=== PATIENT | male | born 1960 | race Caucasian/White ===

== ENCOUNTER 2017-08-23 12:01 | Inpatient (IN) ==
[2017-08-23 13:03] LABS: Hematocrit 22.1 % (37.5-50.1); Red Cell Distribution Width 20.8 % (11.5-14.5)
[2017-08-23 13:04] LABS: Basophils % 0.8 %
[2017-08-23 13:05] LABS: Eosinophils # 0.1 K/mcL (0.0-0.6); Hemoglobin 6.9 g/dL (12.9-16.9); Immature Granulocytes % 0.5 % (0-4); Immature Platelets 9.3 % (1.1-6.1); Lymphocytes % 27.9 %; Mean Corpuscular HGB Conc 31.2 g/dL (31.6-35.5); Mean Corpuscular Hemoglobin 26.2 pg (28.0-33.3); Mean Platelet Volume 11.9 fL (9.4-12.4); Monocytes # 0.6 K/mcL (0.0-1.3); Monocytes % 14.8 %; Platelet Count 95 K/mcL (140-400); Red Blood Count 2.63 M/mcL (4.19-5.50)
[2017-08-23 13:50] LABS: BUN/Creatinine Ratio 36 (6-26); Blood Urea Nitrogen 24 mg/dL (6-20); Carbon Dioxide 22 mEq/L (23-29); Chloride 105 mEq/L (98-107); Glucose 103 mg/dL (70-105); Osmolality,Calculated 278 (280-300); Potassium 3.5 mEq/L (3.5-5.1); Sodium 132 mEq/L (136-145); eGFR For African Americans > 60 (> 60); eGFR For Non-African Americans > 60 (> 60)
[2017-08-23] MEDS ORDERED: 0.9 % Sodium Chloride 1,000 ML IVC ONE (14:19)
--- NOTE | 2017-08-23 14:19 | Emergency Department Note ---
Disposition Clinical Impression: GI bleed, History of esophageal varices Disposition: Admitted As Inpatient Condition: Fair Referrals: NONE,PCP [Primary Care Provider] - Forms: ED Satisfaction Letter General Adult HPI - General Chief complaint: ED GI Bleed Stated complaint: GI Bleed Time Seen by Provider: 08/23/17 13:56 Source: patient Limitations: no limitations - History of Present Illness Pain Scale: 8 - Related Data Home Medications Medication Instructions Recorded Confirmed ALPRAZolam [Xanax 1 MG Tablet] 1 mg PO TID 08/23/17 08/23/17 Dronabinol [Marinol] 5 mg PO BID 08/23/17 08/23/17 Furosemide [Lasix] 40 mg PO DAILY 08/23/17 08/23/17 OxyCODONE Immed Rel [Roxicodone 15 15 mg PO Q6HR PRN 08/23/17 08/23/17 MG] Propranolol [Inderal] 20 mg PO BID 08/23/17 08/23/17 Spironolactone [Aldactone] 25 mg PO DAILY 08/23/17 08/23/17 Allergies Allergy/AdvReac Type Severity Reaction Status Date / Time No Known Allergies Allergy Verified 08/23/17 14:10 Past Medical History - Past Medical History Medical history: Reports: GI bleed, hypertension, liver disease Psychiatric history: Reports: anxiety - Social History Smoking Status: Current every day smoker Smokeless Tobacco Status: No Alcohol use: Reports: none Drug use: Reports: none Physical Exam - General Limitations: no limitations General appearance: alert, in no apparent distress Course Vital Signs Temperature 97.8 F 08/23/17 12:02 Pulse Rate 71 08/23/17 12:02 Respiratory Rate 16 08/23/17 12:02 Blood Pressure 99/63 08/23/17 12:02 O2 Sat by Pulse Oximetry 100 08/23/17 12:02 Temperature 97.8 F 08/23/17 12:02 Pulse Rate 71 08/23/17 12:02 Respiratory Rate 16 08/23/17 12:02 Blood Pressure 99/63 08/23/17 12:02 O2 Sat by Pulse Oximetry 100 08/23/17 12:02 Oxygen Delivery Oxygen Delivery Room Air Medical Decision Making - Lab Data Result diagrams: 08/23/17 12:44 08/23/17 12:44 Lab Results 08/23/17 08/23/1718 Range/Units 12:44 12:44 12:44 WBC 3.7 L (4.3-11.1) K/mcL RBC 2.63 L (4.19-5.50) M/mcL Hgb 6.9 L (12.9-16.9) g/dL Hct 22.1 L (37.5-50.1) % MCV 84.0 (83.0-100.0) fL MCH 26.2 L (28.0-33.3) pg MCHC 31.2 L (31.6-35.5) g/dL RDW 20.8 H (11.5-14.5) % Plt Count 95 L (140-400) K/mcL MPV 11.9 (9.4-12.4) fL Immature Gran % 0.5 (0-4) % Seg Neutrophils % 53.0 % Lymphocytes % 27.9 % Monocytes % 14.8 % Eosinophils % 3.0 % Basophils % 0.8 % Neutrophils # 2.0 (1.6-8.9) K/mcL Lymphocytes # 1.0 (0.6-4.6) K/mcL Monocytes # 0.6 (0.0-1.3) K/mcL Eosinophils # 0.1 (0.0-0.6) K/mcL Basophils # 0.0 (0.0-0.2) K/mcL Immature Plt Fraction 9.3 H (1.1-6.1) % PT (9.4-12.1) Seconds INR APTT (26.0-36.0) Seconds Sodium 132 L (136-145) mEq/L Potassium 3.5 (3.5-5.1) mEq/L Chloride 105 (98-107) mEq/L Carbon Dioxide 22 L (23-29) mEq/L BUN 24 H (6-20) mg/dL Creatinine 0.67 L (0.70-1.30) mg/dL Est GFR ( Amer) > 60 (> 60) Est GFR (Non-Af Amer) > 60 (> 60) BUN/Creatinine Ratio 36 H (6-26) Glucose 103 (70-105) mg/dL Calculated Osmolality 278 L (280-300) Calcium 8.0 L (8.6-10.3) mg/dL Stool Occult Blood (Negative) Blood Type O POSITIVE Antibody Screen NEGATIVE Crossmatch See Detail 08/23/17 08/23/17 Range/Units 12:44 14:19 WBC (4.3-11.1) K/mcL RBC (4.19-5.50) M/mcL Hgb (12.9-16.9) g/dL Hct (37.5-50.1) % MCV (83.0-100.0) fL MCH (28.0-33.3) pg MCHC (31.6-35.5) g/dL RDW (11.5-14.5) % Plt Count (140-400) K/mcL MPV (9.4-12.4) fL Immature Gran % (0-4) % Seg Neutrophils % % Lymphocytes % % Monocytes % % Eosinophils % % Basophils % % Neutrophils # (1.6-8.9) K/mcL Lymphocytes # (0.6-4.6) K/mcL Monocytes # (0.0-1.3) K/mcL Eosinophils # (0.0-0.6) K/mcL Basophils # (0.0-0.2) K/mcL Immature Plt Fraction (1.1-6.1) % PT 12.8 H (9.4-12.1) Seconds INR 1.2 APTT 31.0 (26.0-36.0) Seconds Sodium (136-145) mEq/L Potassium (3.5-5.1) mEq/L Chloride (98-107) mEq/L Carbon Dioxide (23-29) mEq/L BUN (6-20) mg/dL Creatinine (0.70-1.30) mg/dL Est GFR ( Amer) (> 60) Est GFR (Non-Af Amer) (> 60) BUN/Creatinine Ratio (6-26) Glucose (70-105) mg/dL Calculated Osmolality (280-300) Calcium (8.6-10.3) mg/dL Stool Occult Blood Positive A (Negative) Blood Type Antibody Screen Crossmatch Critical Care Time Critical Care Time: Yes Total Critical Care Time: 30 Attestation: The high probability of a clinically significant, sudden or life threatening deterioration of the [] system(s) required my full and direct attention, intervention and personal management. The aggregate critical care time was [] minutes. This time is in addition to time spent performing reported procedures but includes the following: [] Data Review and interpretation [] Patient assessment and monitoring of vital signs [] Documentation [] Medication orders and management Attestation Statement - Attestation Attestation: I examined this patient and my medical decision-making was reviewed with the Resident Physician. I agree with the documented findings, disposition and treatment plan as described except to the extent set forth below. [id number] time provided. Patient seen in conjunction with the resident physician Dr. El. Patient presents with bleeding from his . He is anemic and hypotensive. He has a history of esophageal varices. He has remote history of alcohol cirrhosis. Appears pale on exa. triage note and vitals reviewed by me
[2017-08-23] MEDS ORDERED: Pantoprazole 80 MG in 0.9 % Sodium Chloride 50 ML IVPB ONE (14:25)
[2017-08-23 14:27] LABS: INR 1.2; Prothrombin Time 12.8 Seconds (9.4-12.1)
--- NOTE | 2017-08-23 14:28 | Emergency Department Note ---
Disposition Referrals: NONE,PCP [Primary Care Provider] - Forms: ED Satisfaction Letter Pediatric GI HPI - General Chief Complaint: ED GI Bleed Stated Complaint: GI Bleed Time Seen by Provider: 08/23/17 13:56 Source: patient Mode of arrival: ambulatory Limitations: no limitations Nursing Notes Reviewed: Yes Vital Signs Reviewed: Yes - History of Present Illness HPI narrative: 57-year-old male history of cirrhosis, remote alcoholic, hepatitis presents for evaluation of dark stools. Patient does have known varices that was banded in [place] of September of last year. Patient has also had a colonoscopy in the past 2 years and noted polyps. Patient had dark stools over the past 4 days. Patient notes some lightheadedness and generalized weakness. Notes intermittent chest pain and dyspnea as well. Denies any blood thinners or aspirin. Patient denies any abdominal pain. Patient denies any coffee-ground emesis or nausea or vomiting. - Related Data Home Medications Medication Instructions Recorded Confirmed ALPRAZolam [Xanax 1 MG Tablet] 1 mg PO TID 08/23/17 08/23/17 Dronabinol [Marinol] 5 mg PO BID 08/23/17 08/23/17 Furosemide [Lasix] 40 mg PO DAILY 08/23/17 08/23/17 OxyCODONE Immed Rel [Roxicodone 15 15 mg PO Q6HR PRN 08/23/17 08/23/17 MG] Propranolol [Inderal] 20 mg PO BID 08/23/17 08/23/17 Spironolactone [Aldactone] 25 mg PO DAILY 08/23/17 08/23/17 Allergies Allergy/AdvReac Type Severity Reaction Status Date / Time No Known Allergies Allergy Verified 08/23/17 14:10 Pediatric Exam - General Limitations: no limitations Course Vital Signs Temperature 97.8 F 08/23/17 12:02 Pulse Rate 71 08/23/17 12:02 Respiratory Rate 16 08/23/17 12:02 Blood Pressure 99/63 08/23/17 12:02 O2 Sat by Pulse Oximetry 100 08/23/17 12:02 Temperature 97.8 F 08/23/17 12:02 Pulse Rate 71 08/23/17 12:02 Respiratory Rate 16 08/23/17 12:02 Blood Pressure 99/63 08/23/17 12:02 O2 Sat by Pulse Oximetry 100 08/23/17 12:02 Oxygen Delivery Oxygen Delivery Room Air Medical Decision Making - Lab Data Result diagrams: 08/23/17 12:44 08/23/17 12:44 Lab Results 08/23/17 08/23/17 08/23/17 Range/Units 12:44 12:44 12:44 WBC 3.7 L (4.3-11.1) K/mcL RBC 2.63 L (4.19-5.50) M/mcL Hgb 6.9 L (12.9-16.9) g/dL Hct 22.1 L (37.5-50.1) % MCV 84.0 (83.0-100.0) fL MCH 26.2 L (28.0-33.3) pg MCHC 31.2 L (31.6-35.5) g/dL RDW 20.8 H (11.5-14.5) % Plt Count 95 L (140-400) K/mcL MPV 11.9 (9.4-12.4) fL Immature Gran % 0.5 (0-4) % Seg Neutrophils % 53.0 % Lymphocytes % 27.9 % Monocytes % 14.8 % Eosinophils % 3.0 % Basophils % 0.8 % Neutrophils # 2.0 (1.6-8.9) K/mcL Lymphocytes # 1.0 (0.6-4.6) K/mcL Monocytes # 0.6 (0.0-1.3) K/mcL Eosinophils # 0.1 (0.0-0.6) K/mcL Basophils # 0.0 (0.0-0.2) K/mcL Immature Plt Fraction 9.3 H (1.1-6.1) % Sodium 132 L (136-145) mEq/L Potassium 3.5 (3.5-5.1) mEq/L Chloride 105 (98-107) mEq/L Carbon Dioxide 22 L (23-29) mEq/L BUN 24 H (6-20) mg/dL Creatinine 0.67 L (0.70-1.30) mg/dL Est GFR ( Amer) > 60 (> 60) Est GFR (Non-Af Amer) > 60 (> 60) BUN/Creatinine Ratio 36 H (6-26) Glucose 103 (70-105) mg/dL Calculated Osmolality 278 L (280-300) Calcium 8.0 L (8.6-10.3) mg/dL Blood Type O POSITIVE Antibody Screen NEGATIVE
--- NOTE | 2017-08-23 14:32 | Emergency Department Note ---
Disposition Clinical Impression: History of esophageal varices, Transaminitis, Thrombocytopenia GI bleed Qualifiers: GI bleed type/associated pathology: melena Qualified Code(s): K92.1 - Melena Disposition: Admitted As Inpatient Condition: Fair Referrals: NONE,PCP [Primary Care Provider] - Forms: ED Satisfaction Letter Time of Disposition: 14:38 GI Bleed HPI - General Chief complaint: ED GI Bleed Stated complaint: GI Bleed Time Seen by Provider: 08/23/17 13:56 Source: patient Mode of arrival: ambulatory Limitations: no limitations Nursing Notes Reviewed: Yes Vital Signs Reviewed: Yes - History of Present Illness HPI Narrative: 57-year-old male with known esophageal varices former alcoholic with cirrhosis and hepatitis presents for evaluation of dark stools over the past 4 days. Patient notes an upper GI scope obtained on [place] last year. No recent interventions. Patient also had a colonoscopy within the past 2 years noted have polyps. Patient denies any hematemesis. Denies any nausea or vomiting or abdominal pain. Patient is symptomatic with his anemia. Patient reports generalized weakness intermittent chest pain and dyspnea. Patient does not take any blood thinners. Patient has been nothing by mouth for approximately 6 hours. - Related Data Home Medications Medication Instructions Recorded Confirmed ALPRAZolam [Xanax 1 MG Tablet] 1 mg PO TID 08/23/17 08/23/17 Dronabinol [Marinol] 5 mg PO BID 08/23/17 08/23/17 Furosemide [Lasix] 40 mg PO DAILY 08/23/17 08/23/17 OxyCODONE Immed Rel [Roxicodone 15 15 mg PO Q6HR PRN 08/23/17 08/23/17 MG] Propranolol [Inderal] 20 mg PO BID 08/23/17 08/23/17 Spironolactone [Aldactone] 25 mg PO DAILY 08/23/17 08/23/17 Allergies Allergy/AdvReac Type Severity Reaction Status Date / Time No Known Allergies Allergy Verified 08/23/17 14:10 All systems ED: reviewed and negative except as stated. Constitutional: Denies: fever Cardiovascular: Reports: chest pain Respiratory: Reports: dyspnea Gastrointestinal: Reports: abdominal pain, melena. Denies: nausea, vomiting Genitourinary: Denies: urgency, dysuria Past Medical History - Past Medical History Source: patient Medical history: Reports: GI bleed, hypertension, liver disease Psychiatric history: Reports: anxiety - Social History Smoking Status: Current every day smoker Smokeless Tobacco Status: No Alcohol use: Reports: none Drug use: Reports: none Physical Exam - General Limitations: no limitations General appearance: alert, in no apparent distress - Head Head exam: atraumatic, normocephalic, normal inspection - Eye Eye exam: Present: normal appearance, PERRL, EOMI. Absent: scleral icterus - ENT ENT exam: normal exam, mucous membranes moist - Neck Neck exam: Present: normal inspection - Chest Chest inspection: Present: normal inspection, symmetric chest wall rise - Respiratory Respiratory exam: Present: normal lung sounds bilaterally. Absent: respiratory distress - Cardiovascular Cardiovascular exam: Present: regular rate, normal rhythm. Absent: systolic murmur - Abdominal Exam Abdominal exam: Present: soft, Non-Tender. Absent: distention, guarding, rebound - Rectal Exam Workers Compensation Adjuster present during exam: Yes Rectal exam: Present: normal inspection, black stool - Extremities Exam Extremities exam: Present: normal inspection - Back Exam Back exam: Present: normal inspection - Neurological Exam Neurological exam: Present: alert, oriented X3 - Skin Skin exam: Present: warm, dry, intact, normal color Course Course Narrative: Patient seen and examined. Patient was noted to be hypotensive. Patient's hemoglobin obtained from triage is 6.9. Patient will get 2 units of PRBCs. Also get basic lab work type and screen EKG. Patient be admitted to the hospital service for continued support. - Consultations Consultation #1: Did initially speak with Dr. Sawyer who states that he is available for banding however notes that GI is available until 5:00. Spoke with Dr. Bedoya who states that he is available for intervention. Time: 14:36 Vital Signs Temperature 97.8 F 08/23/17 12:02 Pulse Rate 71 08/23/17 12:02 Respiratory Rate 16 08/23/17 12:02 Blood Pressure 99/63 08/23/17 12:02 O2 Sat by Pulse Oximetry 100 08/23/17 12:02 Temperature 97.8 F 08/23/17 12:02 Pulse Rate 67 08/23/17 15:40 Respiratory Rate 18 08/23/17 15:40 Blood Pressure 112/72 08/23/17 15:40 O2 Sat by Pulse Oximetry 100 08/23/17 12:02 Oxygen Delivery Oxygen Delivery Room Air GI Bleed - MDM Narrative Medical decision making narrative: Patient with known liver disease presented for evaluation of dark stools. Patient was noted to be anemic. Patient was given 2 units of PRBCs. Protonix and Rocephin given as well. Patient's case was discussed with the GI doctor. Patient would likely need endoscopy for his known varices. Patient's stable in the emergency department. Patient will be admitted to the hospital service for further evaluation and monitoring. - Lab Data Lab results reviewed: Yes I reviewed the patient's lab results. Result diagrams: 08/23/17 12:44 08/23/17 12:44 Lab Results 08/23/17 08/23/17 08/23/17 Range/Units 12:44 12:44 12:44 WBC 3.7 L (4.3-11.1) K/mcL RBC 2.63 L (4.19-5.50) M/mcL Hgb 6.9 L (12.9-16.9) g/dL Hct 22.1 L (37.5-50.1) % MCV 84.0 (83.0-100.0) fL MCH 26.2 L (28.0-33.3) pg MCHC 31.2 L (31.6-35.5) g/dL RDW 20.8 H (11.5-14.5) % Plt Count 95 L (140-400) K/mcL MPV 11.9 (9.4-12.4) fL Immature Gran % 0.5 (0-4) % Seg Neutrophils % 53.0 % Lymphocytes % 27.9 % Monocytes % 14.8 % Eosinophils % 3.0 % Basophils % 0.8 % Neutrophils # 2.0 (1.6-8.9) K/mcL Lymphocytes # 1.0 (0.6-4.6) K/mcL Monocytes # 0.6 (0.0-1.3) K/mcL Eosinophils # 0.1 (0.0-0.6) K/mcL Basophils # 0.0 (0.0-0.2) K/mcL Immature Plt Fraction 9.3 H (1.1-6.1) % PT (9.4-12.1) Seconds INR APTT (26.0-36.0) Seconds Sodium 132 L (136-145) mEq/L Potassium 3.5 (3.5-5.1) mEq/L Chloride 105 (98-107) mEq/L Carbon Dioxide 22 L (23-29) mEq/L BUN 24 H (6-20) mg/dL Creatinine 0.67 L (0.70-1.30) mg/dL Est GFR ( Amer) > 60 (> 60) Est GFR (Non-Af Amer) > 60 (> 60) BUN/Creatinine Ratio 36 H (6-26) Glucose 103 (70-105) mg/dL Calculated Osmolality 278 L (280-300) Calcium 8.0 L (8.6-10.3) mg/dL Total Bilirubin 1.1 H (0.3-1.0) mg/dL Direct Bilirubin 0.5 H (0.0-0.2) mg/dL Indirect Bilirubin 0.6 (0.0-1.2) mg/dL AST 164 H (13-39) Units/L ALT 132 H (7-52) Units/L Alkaline Phosphatase 123 H (34-104) Units/L Troponin I (< 0.04) ng/mL Serum Total Protein 6.2 L (6.4-8.9) g/dL Albumin 3.0 L (3.5-5.7) g/dL Globulin 3.2 (2.4-3.5) g/dL Albumin/Globulin Ratio 0.9 L (1.1-2.2) Stool Occult Blood (Negative) Blood Type O POSITIVE Antibody Screen NEGATIVE Crossmatch See Detail 08/23/17 08/23/17 08/23/17 Range/Units 12:44 12:44 14:19 WBC (4.3-11.1) K/mcL RBC (4.19-5.50) M/mcL Hgb (12.9-16.9) g/dL Hct (37.5-50.1) % MCV (83.0-100.0) fL MCH (28.0-33.3) pg MCHC (31.6-35.5) g/dL RDW (11.5-14.5) % Plt Count (140-400) K/mcL MPV (9.4-12.4) fL Immature Gran % (0-4) % Seg Neutrophils % % Lymphocytes % % Monocytes % % Eosinophils % % Basophils % % Neutrophils # (1.6-8.9) K/mcL Lymphocytes # (0.6-4.6) K/mcL Monocytes # (0.0-1.3) K/mcL Eosinophils # (0.0-0.6) K/mcL Basophils # (0.0-0.2) K/mcL Immature Plt Fraction (1.1-6.1) % PT 12.8 H (9.4-12.1) Seconds INR 1.2 APTT 31.0 (26.0-36.0) Seconds Sodium (136-145) mEq/L Potassium (3.5-5.1) mEq/L Chloride (98-107) mEq/L Carbon Dioxide (23-29) mEq/L BUN (6-20) mg/dL Creatinine (0.70-1.30) mg/dL Est GFR ( Amer) (> 60) Est GFR (Non-Af Amer) (> 60) BUN/Creatinine Ratio (6-26) Glucose (70-105) mg/dL Calculated Osmolality (280-300) Calcium (8.6-10.3) mg/dL Total Bilirubin (0.3-1.0) mg/dL Direct Bilirubin (0.0-0.2) mg/dL Indirect Bilirubin (0.0-1.2) mg/dL AST (13-39) Units/L ALT (7-52) Units/L Alkaline Phosphatase (34-104) Units/L Troponin I < 0.03 (< 0.04) ng/mL Serum Total Protein (6.4-8.9) g/dL Albumin (3.5-5.7) g/dL Globulin (2.4-3.5) g/dL Albumin/Globulin Ratio (1.1-2.2) Stool Occult Blood Positive A (Negative) Blood Type Antibody Screen Crossmatch - Radiology Data Radiology results reviewed: Yes I reviewed the patient's radiology results. - EKG Data EKG attestation: Yes I reviewed and interpreted this EKG. EKG shows normal: sinus rhythm Rate: normal Rhythm: NSR [place]/QRS: normal ST segment depression in: v3 Q waves: III, v1 Interpretation: no acute changes, nonspecific ST-T wave changes S.B.A.R. - S.B.A.R. Situation: Demographics Background: Presenting Complaint Assessment: Vital Signs, Course and respsone to treatment, Patient/Family Expectation Recommendation: Barrier(s) to disposition, Recommendation based on pending studies, treatments, or consults [place] Report Given to: Hospitalist N[place]um Repor Time: 15:20
[2017-08-23] MEDS ORDERED: Pantoprazole 40 MG in 0.9 % Sodium Chloride Mini Bag 100 ML IVC SCH (14:45)
[2017-08-23 15:10] LABS: Alanine Aminotransferase 132 Units/L (7-52); Albumin/Globulin Ratio 0.9 (1.1-2.2); Alkaline Phosphatase 123 Units/L (34-104); Aspartate Amino Transferase 164 Units/L (13-39); Bilirubin,Direct 0.5 mg/dL (0.0-0.2); Bilirubin,Indirect 0.6 mg/dL (0.0-1.2); Bilirubin,Total 1.1 mg/dL (0.3-1.0); Globulin 3.2 g/dL (2.4-3.5); Total Protein 6.2 g/dL (6.4-8.9)
--- NOTE | 2017-08-23 16:31 | Internal Med History&Physical ---
<Sergey Diez - Last Filed: 08/23/17 17:42> Date of Encounter: 08/23/17 Time of Encounter: 16:00 Assessment and Plan (1) GI bleed Current visit: Yes Status: Acute Hx of recurrent GI bleeding in the setting of cirrhosis (liver) esophageal varices with previous banding. Presents with melena for 4 days. Hgb 6.9, thrombocytopenia secondary to liver disease. INR 1.2. Previous EGD and colonoscopies in [place] within the past year for GI bleeding. Never seen here in our system. Current Vitals: BP 99/63 ( lower from admission at 150's Systolic), HR 70's, No fever or tachypnea. Dx: bleeding esophageal varices, Peptic ulcers (yet asymptomatic), Colon polyps vs cancer. (melena would consider more likely upper GI bleeding) Plan: - PRBCs x 2 units in ER - Already received 3L fluids - On Protonix drip - Octreotide drip at 50mcg/hr - NS at 100ml/hr - NPO - GI consulted Qualifiers: GI bleed type/associated pathology: melena Qualified Code(s): K92.1 - Melena (2) Hepatitis C, chronic Current visit: Yes Status: Acute Chronic hx x 40+yrs Qualifiers: Qualified Code(s): B18.2 - Chronic viral hepatitis C (3) ETOH abuse Current visit: Yes Status: Acute patient has a significant EtOH abuse hx, denies recent drink in the past 2 wks but that is questioned by family. - Drink of choice: Vodka and mixed drinks. Will place on CIWA protocol. (4) Advanced cirrhosis of liver Current visit: Yes Status: Acute Advanced Liver Cirrhosis possibly combination of Hepatitis C for decades + EtOH abuse (5) History of esophageal varices Current visit: Yes Status: Acute Hx of Esophageal varices and bleeding, frequent banding events with last episode in September in [place]. - GI consulted. (6) Transaminitis Current visit: Yes Status: Acute Elevated Liver enzymes likely from Hepatitis, may be partially EtOH abuse. - Monitor daily . Observe for other causes. (7) Thrombocytopenia Current visit: Yes Status: Acute likely secondary to Liver disease (8) DVT prophylaxis Current visit: Yes Status: Acute None he is bleeding. SCD for now. Internal Medicine - H&P: HPI Chief complaint: bleeding inside Admitted From: Home Plans for Post Hospital Care: Home History of present illness: Mr. Remy is a 57 year old male presents with complaint of bleeding inside. He has a significant PMH of cirrhotic liver, esophageal varices with numerous banding (last in September of 2016) He has had multiple GI bleeds with his last 6 months ago where he required banding and PRBC transfussion. He also has a significant PMH of EtOH abuse, Hepatitis C (40+ year old diagnosis), colon polyps with last colonoscopy within the past year. He presented with dark tar like stools per rectum for the past 4 days progressing with weakness, fatigue and lethargy. He denies NSAID use or Tylenol use do to his liver disease. He also denies any EtOH use in the past 2 weeks which is questioned by family at bedside. When he does drink he drinks 4+ mixed drinks (maybe more) in one setting. He denies withdrawl but did have a seizure 2 yrs ago which he denies from EtOH use. He describes the bleeding per rectum as non-painful, without diarrhea, nausea or bright red blood only melena. He feels this may be another bleeding varice. He recently moved from [place] to live with his sister her in [facility]. He has not seen a PCP or Catering Operations Manager since moving to the area. Past Med Surg Social Fam HX - Past Medical History Medical history: cirrhosis, GI bleed, hepatitis, hypertension, liver disease, RA Psychiatric history: anxiety - Past Surgical History Surgical History: other (esophageal banding, colon polyps) - Social History Smoking Status: Current every day smoker Smokeless Tobacco Status: No Alcohol use: none, recent Drug use: none Occupational status: unemployed - Family History Mother Grandmother Race: Hx Family Cancer: Yes Internal Medicine - H&P: Meds ALPRAZolam [Xanax 1 MG Tablet] 1 mg PO TID 08/23/17 [History] Dronabinol [Marinol] 5 mg PO BID 08/23/17 [History] Furosemide [Lasix] 40 mg PO DAILY 08/23/17 [History] OxyCODONE Immed Rel [Roxicodone 15 MG] 15 mg PO Q6HR PRN 08/23/17 [History] Propranolol [Inderal] 20 mg PO BID 08/23/17 [History] Spironolactone [Aldactone] 25 mg PO DAILY 08/23/17 [History] 3 Allergy/AdvReac Type Severity Reaction Status Date / Time No Known Allergies Allergy Verified 08/23/17 14:10 All Systems PM: A 10-system review of systems was performed and is negative for pertinent findings except as documented above in the HPI. - Constitutional Constitutional: fatigue, lethargy, weakness, no chills, no fever(s), no falls, no night sweats - EENT Eyes: no change in vision, no discharge, no pain, no photophobia Ears: no ear discharge, no ear pain, no tinnitus Nose, mouth and throat: no dysphagia, no nasal discharge, no neck pain, no sore throat - Cardiovascular Cardiovascular ROS IM: no chest pain, no diaphoresis, no dyspnea, no lightheadedness, no palpitations, no syncope - Respiratory Respiratory: no cough, no dyspnea, no wheezing, no excessive phlegm production - Gastrointestinal Gastrointestinal: melena, no abdominal pain, no diarrhea, no hematemesis, no hematochezia, no nausea, no vomiting - Musculoskeletal Musculoskeletal ROS IM: no numbness, no tingling - Integumentary Integumentary IM: no rash, no unusual bruising - Neurological Neurological ROS: no confusion, no convulsions, no focal weakness, no numbness, no tingling, no tremor(s) - Hematologic/Lymphatic Hematologic/Lymphatic: no easy bruising - Constitutional Vitals: Temp Pulse Resp BP Pulse Ox 97.8 F 71 20 108/75 96 08/23/17 12:02 08/23/17 16:08 08/23/17 16:08 08/23/17 16:08 08/23/17 16:08 General appearance: Present: cooperative, A&O X 3, pleasant, no acute distress, answers questions appropriately - Head Head exam: Present: atraumatic, normocephalic - Eye Eye exam: Present: PERRL, conjuntiva pink, sclera anicteric Pupils: Present: PERRL - ENT ENT exam: Present: mucous membranes moist - Neck Neck exam general surgery: Present: supple, trachea midline. Absent: lymphadenopathy, thyromegaly - Respiratory Respiratory exam: Present: CTAB. Absent: accessory muscle use, rales, rhonchi, wheezes - Cardiovascular Cardiovascular exam: Present: RRR, +S1, +S2. Absent: diastolic murmur, gallop, rubs, systolic murmur - GI/Abdominal GI/Abdominal exam: Present: hepatomegaly, normal bowel sounds, soft, no peritoneal signs. Absent: distended, tenderness - Extremities Exam Extremities exam: Present: warm, radial pulses palpable and symmetrical. Absent : calf tenderness, cyanotic, normal capillary refill, normal inspection, pedal edema - Neurological Exam Neurological exam: Present: alert, oriented X3, no focal deficits. Absent: pronater drift, facial droop, speech deficit - Skin Skin exam: Present: dry, intact Internal Med - H&P Results - Labs CBC & Chem 7: 08/23/17 12:44 08/23/17 12:44 <Juventino Eugene T - Last Filed: 08/23/17 18:33> Date of Encounter: 08/23/17 Internal Medicine - H&P: HPI History of present illness: Mr. Remy is a 57 year old male All Systems PM: A 10-system review of systems was performed and is negative for pertinent findings except as documented above in the HPI. - Constitutional Vitals: Temp Pulse Resp BP Pulse Ox 97.8 F 71 20 108/75 96 08/23/17 12:02 08/23/17 16:08 08/23/17 16:08 08/23/17 16:08 08/23/17 16:08 Internal Med - H&P Results - Labs CBC & Chem 7: 08/23/17 17:28 08/23/17 12:44 Labs: Short CBC 08/23/17 Range/Units 17:28 WBC 3.2 L (4.3-11.1) K/mcL Hgb 6.7 L (12.9-16.9) g/dL Hct 21.4 L (37.5-50.1) % Plt Count 91 L (140-400) K/mcL Neutrophils # 1.6 (1.6-8.9) K/mcL Cardiac Enzymes 08/23/17 Range/Units 17:28 Troponin I < 0.03 (< 0.04) ng/mL Liver Function 08/23/17 Range/Units 17:28 Total Bilirubin 1.3 H (0.3-1.0) mg/dL Direct Bilirubin 0.6 H (0.0-0.2) mg/dL AST 149 H (13-39) Units/L ALT 127 H (7-52) Units/L Alkaline Phosphatase 109 H (34-104) Units/L Albumin 2.9 L (3.5-5.7) g/dL - Attending Attestation The patient was independently examined and his available records, labs, imaging and studies were personally reviewed. Agree with the resident's A&P. GI called with plan for scope. 2 Units PRBC ordered. Octreotide drip and Protonix drip started. Serial H&H ordered. IVFs given and VS improved. Needs further w/u concerning Hep-c and hepatic cirrhosis when out of acute state. No anti-Ptl agents. No SQ heparin or Lovenox for VTE prophylaxis. Pancytopenia likely secondary to cirrhosis and ongoing ETOH abuse but need further w/u. Continue CIWA protocol.
[2017-08-23] MEDS ORDERED: Naloxone 0.4 MG/ML INJ IVP PRN (16:42)
[2017-08-23] MEDS ORDERED: *HR* LORazepam 2 MG/ML VIAL IVP PRN ×3 (16:58)
[2017-08-23] MEDS ORDERED: Folic Acid 1 MG in D5% in Water 50 ML IVPB SCH (17:00)
[2017-08-23] MEDS ORDERED: Thiamine (B-1) 100 MG in D5% in Water 50 ML IVPB SCH (17:00)
[2017-08-23] MEDS ORDERED: Octreotide 400 MCG in 0.9 % Sodium Chloride 100 ML IVC SCH (17:00)
[2017-08-23] MEDS ORDERED: 0.9 % Sodium Chloride 250 ML ONE ×2 (17:03→20:56)
[2017-08-23 17:43] LABS: Basophils % 0.6 %; Eosinophils # 0.1 K/mcL (0.0-0.6); Eosinophils % 2.5 %; Hematocrit 21.4 % (37.5-50.1); Hemoglobin 6.7 g/dL (12.9-16.9); Immature Granulocytes % 0.3 % (0-4); Lymphocytes % 30.2 %; Mean Corpuscular HGB Conc 31.3 g/dL (31.6-35.5); Mean Corpuscular Hemoglobin 26.4 pg (28.0-33.3); Mean Corpuscular Volume 84.3 fL (83.0-100.0); Mean Platelet Volume 11.6 fL (9.4-12.4); Monocytes # 0.5 K/mcL (0.0-1.3); Monocytes % 16.5 %; Neutrophils # 1.6 K/mcL (1.6-8.9); Platelet Count 91 K/mcL (140-400); Red Blood Count 2.54 M/mcL (4.19-5.50); Red Cell Distribution Width 20.9 % (11.5-14.5); Segmented Neutrophils % 49.9 %
[2017-08-23] MEDS ORDERED: *HR* Propofol 200 MG/20 ML VIAL IVP ONE (17:57)
[2017-08-23] MEDS ORDERED: *HR* Midazolam HCl 2 MG/2 ML VIAL ONE (17:58)
--- NOTE | 2017-08-23 18:03 | Anesthesia Evaluation PreOp ---
Date of Encounter: 08/23/17 Time of Encounter: 18:24 - Past History Planned Operation: EGD Cardiac History: HTN Pulmonary History: Smoker SANDER [employer] PENCILS History: Seizures (2 years ago) Other Medical History: Hepatic (Hep C, cirrhosis, known esophageal varices), Bleeding (GI bleed; hx of GI bleed), Other (alcoholism, thombocytopenia due to liver disease, anemia) Anesthesia History: No Prior Anesthetic Complications, Past Anesthesia (EGD with banding) Alcohol Use: none, recent Drug use: none Medications and Allergies ALPRAZolam [Xanax 1 MG Tablet] 1 mg PO TID 08/23/17 [History] Dronabinol [Marinol] 5 mg PO BID 08/23/17 [History] Furosemide [Lasix] 40 mg PO DAILY 08/23/17 [History] OxyCODONE Immed Rel [Roxicodone 15 MG] 15 mg PO Q6HR PRN 08/23/17 [History] Propranolol [Inderal] 20 mg PO BID 08/23/17 [History] Spironolactone [Aldactone] 25 mg PO DAILY 08/23/17 [History] 3 Allergy/AdvReac Type Severity Reaction Status Date / Time No Known Allergies Allergy Verified 08/23/17 14:10 - Meds/Allergy Pre-op Review Medications Reviewed: Yes Allergies Reviewed: Yes Beta Blockers on Current Med List: Yes (propranolol) If Beta Blockers taken, Date/Time (Last Dose taken): 08-23-17 at 8:30 am Anesthesia Results - Labs 08/23/17 17:28 08/23/17 12:44 Laboratory Tests 08/23/17 12:44 PT 12.8 H INR 1.2 APTT 31.0 Anesthesia Exam Last Vital Signs Temp 97.8 F 08/23/17 12:02 Pulse 71 08/23/17 16:08 Resp 20 08/23/17 16:08 BP 108/75 08/23/17 16:08 Pulse Ox 96 08/23/17 16:08 Weight: 66 kg NPO (# of Hours): last ate 9 am (9 hrs NPO) - HEENT Pupil (Motor): Pupils equal, EOMI Mallampati: II Teeth: Normal Oral Opening: Greater than 3 - SANDER WOODEN PENCILS LOC: Oriented - Cardiac Rhythm: Regular - Pulmonary Breath Sounds: bilateral Clear Respiratory Effort: Symmetrical Anesthesia Assess/Plan ASA Score: 3 Modified Charles Scale for Level of Consciousness: Cooperative, oriented, and tranquil Anesthetic Plan: MAC Monitoring Plan: Standard Monitors Recovery Plan: PACU
[2017-08-23 18:06] LABS: Albumin 2.9 g/dL (3.5-5.7); Bilirubin,Direct 0.6 mg/dL (0.0-0.2); Bilirubin,Indirect 0.7 mg/dL (0.0-1.2); Bilirubin,Total 1.3 mg/dL (0.3-1.0)
[2017-08-23] MEDS ORDERED: Lidocaine -MPF 2% 2 ML VIAL ONE (18:10)
[2017-08-23 18:12] LABS: Chol/HDL Ratio 4.3 (0-4.9); Globulin 2.9 g/dL (2.4-3.5); Total Protein 5.8 g/dL (6.4-8.9)
[2017-08-23] MEDS ORDERED: *HR* PHENYLEPHRINE 1,000 MCG/10 ML SYRINGE IVP ONE (19:00)
[2017-08-23] MEDS ORDERED: Polyethylene Glycol 3350 255 GM POWDER PO ONE (19:18)
[2017-08-23] MEDS ORDERED: SODIUM CHLORIDE/NAHCO3/KCL/PEG 4,000 ML SOLN.RECON PO ONE (19:18)
--- NOTE | 2017-08-23 19:26 | Anesthesia Evaluation Post Op ---
Date of Encounter: 08/23/17 Time of Encounter: 19:25 - Vital Signs Vital Signs: Last Vital Signs Temp 98.6 F 08/23/17 18:56 Pulse 72 08/23/17 19:16 Resp 16 08/23/17 19:16 BP 100/60 08/23/17 19:16 Pulse Ox 100 08/23/17 19:16 - Lungs Lungs: Clear Ascult./Percussion - Airway Airway: Non-obstructed - Cardiovascular Regular Rate - Mental Status Mental Status: Alert & Oriented, Answers Appropriately - Pain Pain Scale: 1 - Nausea Vomiting Nausea Vomiting: Not Present - Hydration Hydration: NPO - Discharge PostOp Status: Transfer Patient to floor
[2017-08-23] MEDS: ALPRAZolam 1 MG TABLET PO SCH (20:32)
[2017-08-23] MEDS: *HR* OxyCODONE Immed Rel 15 MG TABLET PO PRN (20:33)
[2017-08-23] MEDS: Thiamine (B-1) 100 MG in 0.9 % Sodium Chloride 50 ML IVPB SCH (20:33)
[2017-08-23] MEDS: 0.9 % Sodium Chloride 1,000 ML IVC SCH (20:34)
[2017-08-23] MEDS: Folic Acid 1 MG in 0.9 % Sodium Chloride 50 ML IVPB SCH (20:34)
[2017-08-24] MEDS ORDERED: Ondansetron 4 MG/2 ML VIAL IVP PRN (00:29)
[2017-08-24 00:45] LABS: Basophils % 0.7 %; Eosinophils # 0.1 K/mcL (0.0-0.6); Eosinophils % 2.8 %; Hematocrit 28.1 % (37.5-50.1); Immature Granulocytes % 0.7 % (0-4); Lymphocytes # 1.1 K/mcL (0.6-4.6); Lymphocytes % 26.3 %; Mean Corpuscular HGB Conc 31.7 g/dL (31.6-35.5); Mean Corpuscular Hemoglobin 26.9 pg (28.0-33.3); Mean Corpuscular Volume 84.9 fL (83.0-100.0); Mean Platelet Volume 11.2 fL (9.4-12.4); Monocytes # 0.6 K/mcL (0.0-1.3); Monocytes % 13.4 %; Neutrophils # 2.4 K/mcL (1.6-8.9); Platelet Count 100 K/mcL (140-400); Red Blood Count 3.31 M/mcL (4.19-5.50); Red Cell Distribution Width 19.6 % (11.5-14.5); Segmented Neutrophils % 56.1 %
[2017-08-24 00:48] LABS: Hemoglobin 8.9 g/dL (12.9-16.9)
[2017-08-24 01:04] LABS: BUN/Creatinine Ratio 28 (6-26); Blood Urea Nitrogen 19 mg/dL (6-20); Calcium 7.5 mg/dL (8.6-10.3); Carbon Dioxide 22 mEq/L (23-29); Chloride 108 mEq/L (98-107); Glucose 105 mg/dL (70-105); Osmolality,Calculated 279 (280-300); Potassium 3.4 mEq/L (3.5-5.1); Sodium 133 mEq/L (136-145); eGFR For African Americans > 60 (> 60); eGFR For Non-African Americans > 60 (> 60)
[2017-08-24 05:16] LABS: Basophils % 0.3 %; Hemoglobin 7.9 g/dL (12.9-16.9); Immature Granulocytes % 0.3 % (0-4); Mean Corpuscular Hemoglobin 26.9 pg (28.0-33.3); Red Blood Count 2.94 M/mcL (4.19-5.50)
[2017-08-24 05:19] LABS: Eosinophils # 0.1 K/mcL (0.0-0.6); Eosinophils % 3.4 %; Hematocrit 24.9 % (37.5-50.1); Immature Platelets 8.1 % (1.1-6.1); Lymphocytes # 0.7 K/mcL (0.6-4.6); Lymphocytes % 24.1 %; Mean Corpuscular HGB Conc 31.7 g/dL (31.6-35.5); Mean Corpuscular Volume 84.7 fL (83.0-100.0); Mean Platelet Volume 11.2 fL (9.4-12.4); Monocytes # 0.5 K/mcL (0.0-1.3); Monocytes % 16.9 %; Neutrophils # 1.6 K/mcL (1.6-8.9); Nucleated Red Blood Cells 1.4 /100 WBC (0); Red Cell Distribution Width 19.3 % (11.5-14.5)
[2017-08-24] MEDS: 0.9 % Sodium Chloride 1,000 ML IVC SCH (05:22)
[2017-08-24 05:32] LABS: Platelet Count 69 K/mcL (140-400)
[2017-08-24 06:04] LABS: Anisocytosis 2+ (Not Present)
[2017-08-24 06:05] LABS: Platelet Estimate Decreased (Normal); Polychromasia 1+ (Not Present)
--- NOTE | 2017-08-24 06:47 | Electrocardiograph Report ---
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
[2017-08-24] MEDS: Pantoprazole 40 MG VIAL IVP SCH (08:01)
[2017-08-24] MEDS: ALPRAZolam 1 MG TABLET PO SCH ×3 (08:01→20:50)
[2017-08-24] MEDS: Folic Acid 1 MG in 0.9 % Sodium Chloride 50 ML IVPB SCH (08:02)
[2017-08-24] MEDS: Thiamine (B-1) 100 MG in 0.9 % Sodium Chloride 50 ML IVPB SCH (08:02)
[2017-08-24] MEDS: *HR* OxyCODONE Immed Rel 15 MG TABLET PO PRN ×2 (08:05→20:50)
[2017-08-24] MEDS ORDERED: Potassium Chloride 40 MEQ, Lidocaine 1% 2 ML in D5% in Water 500 ML IVPB ONE (08:27)
--- NOTE | 2017-08-24 08:33 | Internal Med Progress Note ---
<Sergey Diez - Last Filed: 08/24/17 17:20> Date of Encounter: 08/24/17 Time of Encounter: 08:30 - Assessment and plan (1) GI bleed Current Visit: Yes Status: Acute Assessment and plan: Hx of recurrent GI bleeding in the setting of cirrhosis (liver) esophageal varices with previous banding. Presents with melena for 4 days. Hgb 6.9, thrombocytopenia secondary to liver disease. INR 1.2. Previous EGD and colonoscopies in [place] within the past year for GI bleeding. Never seen here in our system. Current Vitals: BP 99/63 ( lower from admission at 150's Systolic), HR 70's, No fever or tachypnea. Dx: bleeding esophageal varices, Peptic ulcers (yet asymptomatic), Colon polyps vs cancer. (melena would consider more likely upper GI bleeding) 08/24: Mr. Remy received 2 units PRBCs last evening, hemoglobin and a bimodal trend indicating active bleed. Continue no antiplatelet or anticoagulation. Plan: - Patient undergoing colonoscopy today, EGD yesterday results from procedures pending. - Monitor H&H replace PRBCs if hemoglobin falls below 7.0 - Every 6 hours H&H - Given his significant history of recurrent esophageal and lower GI bleeding he will need follow-up with gastroenterology. Qualifiers: GI bleed type/associated pathology: melena Qualified Code(s): K92.1 - Melena (2) Hepatitis C, chronic Current Visit: Yes Status: Acute Assessment and plan: Chronic hx x 40+yrs Qualifiers: Qualified Code(s): B18.2 - Chronic viral hepatitis C (3) ETOH abuse Current Visit: Yes Status: Acute Assessment and plan: patient has a significant EtOH abuse hx, denies recent drink in the past 2 wks but that is questioned by family. - Drink of choice: Vodka and mixed drinks. -Continue on CIWA protocol. (4) Advanced cirrhosis of liver Current Visit: Yes Status: Acute Assessment and plan: Advanced Liver Cirrhosis possibly combination of Hepatitis C for decades + EtOH abuse (5) History of esophageal varices Current Visit: Yes Status: Acute Assessment and plan: Hx of Esophageal varices and bleeding, frequent banding events with last episode in September in [place]. - GI consulted. (6) Transaminitis Current Visit: Yes Status: Acute Assessment and plan: Elevated Liver enzymes likely from Hepatitis, may be partially EtOH abuse. - Monitor daily . Observe for other causes. (7) Thrombocytopenia Current Visit: Yes Status: Acute Assessment and plan: likely secondary to Liver disease (8) DVT prophylaxis Current Visit: Yes Status: Acute Assessment and plan: SCD for now. - Subjective Interval history: Mr. Remy seen and evaluated after his procedures today. He is alert, awake and interactive. No complaints or concerns. Tolerated his EGD and Colonoscopy with cauterization of AVMs. - Constitutional Vitals: Temp Pulse Resp BP Pulse Ox 98.9 F 75 14 104/64 96 08/24/17 07:36 08/24/17 07:36 08/24/17 07:36 08/24/17 07:36 08/24/17 07:36 General appearance: Present: cooperative, A&O X 3, pleasant, no acute distress, answers questions appropriately Exam: General: Patient alert, awake, oriented 3, interactive, in no acute distress HEENT: Normocephalic, atraumatic, pupils equal reactive to light, deviation of nasal bridge, chronic. oral mucosa moist, uvula midline, neck supple trachea midline no palpable lymphadenopathy, no thyromegaly. Chest: Symmetric bilateral correlating with respiratory effort, effort nonlabored. Cardiac: Regular rate and rhythm, positive S1 and S2. no bruits appreciated bilateral carotids, Radial pulses 2+ bilateral, posterior tibial and dorsal pedal pulses 2+ bilateral. Respiratory: Clear to auscultation all lung ceja Abdomen: Soft, nontender, hepatomegaly, positive bowel sounds, no palpable masses appreciated on examination Extremities: Symmetric bilateral, bilateral lower extremities without erythema or edema patient moving all 4 extremities spontaneously. Neurologic: No focal deficits appreciated on examination. Face symmetric, muscle strength symmetric bilateral upper and lower extremities. Internal Medicine: Result - Labs CBC & Chem 7: 08/24/17 10:20 08/24/17 00:37 Labs: Short CBC 08/23/17 08/24/17 08/24/17 Range/Units 17:28 00:37 05:02 WBC 3.2 L 4.3 2.9 L (4.3-11.1) K/mcL Hgb 6.7 L 8.9 L D 7.9 L (12.9-16.9) g/dL Hct 21.4 L 28.1 L 24.9 L (37.5-50.1) % Plt Count 91 L 100 L 69 L (140-400) K/mcL Neutrophils # 1.6 2.4 1.6 (1.6-8.9) K/mcL BMP 08/24/17 00:37 Sodium 133 L Potassium 3.4 L Chloride 108 H Carbon Dioxide 22 L BUN 19 Creatinine 0.67 L Glucose 105 Calcium 7.5 L Cardiac Enzymes 08/23/17 Range/Units 17:28 Troponin I < 0.03 (< 0.04) ng/mL Liver Function 08/23/17 Range/Units 17:28 Total Bilirubin 1.3 H (0.3-1.0) mg/dL Direct Bilirubin 0.6 H (0.0-0.2) mg/dL AST 149 H (13-39) Units/L ALT 127 H (7-52) Units/L Alkaline Phosphatase 109 H (34-104) Units/L Albumin 2.9 L (3.5-5.7) g/dL - ABG Interpretation ABG results: PT/INR, D-dimer PT 12.8 Seconds (9.4-12.1) H 08/23/17 12:44 Consult Discharge Plan - Plan Referrals: NONE,PCP [Non-Partnered Physician] - <Philippe Crane - Last Filed: 08/24/17 19:17> Date of Encounter: 08/24/17 - Assessment and plan (1) GI bleed Current Visit: Yes Status: Acute Qualifiers: GI bleed type/associated pathology: melena Qualified Code(s): K92.1 - Melena (2) AVM (arteriovenous malformation) of colon Current Visit: Yes Status: Chronic (3) Acute post-hemorrhagic anemia Current Visit: Yes Status: Acute (4) Cirrhosis, alcoholic Current Visit: Yes Status: Chronic Qualifiers: Ascites presence: without ascites Qualified Code(s): K70.30 - Alcoholic cirrhosis of liver without ascites (5) Hepatitis C, chronic Current Visit: Yes Status: Acute Qualifiers: Hepatic coma status: without hepatic coma Qualified Code(s): B18.2 - Chronic viral hepatitis C (6) Transaminitis Current Visit: Yes Status: Acute (7) Thrombocytopenia Current Visit: Yes Status: Acute (8) ETOH abuse Current Visit: Yes Status: Acute (9) History of esophageal varices Current Visit: Yes Status: Acute - Constitutional Vitals: Temp Pulse Resp BP Pulse Ox 98.1 F 96 20 135/79 96 08/24/17 18:59 08/24/17 18:59 08/24/17 18:59 08/24/17 18:59 08/24/17 18:59 Internal Medicine: Result - Labs CBC & Chem 7: 08/24/17 17:28 08/24/17 00:37 Labs: Short CBC 08/24/17 08/24/17 08/24/17 Range/Units 00:37 05:02 10:20 WBC 4.3 2.9 L 3.1 L (4.3-11.1) K/mcL Hgb 8.9 L D 7.9 L 8.3 L (12.9-16.9) g/dL Hct 28.1 L 24.9 L 26.5 L (37.5-50.1) % Plt Count 100 L 69 L 74 L (140-400) K/mcL Neutrophils # 2.4 1.6 2.1 (1.6-8.9) K/mcL 08/24/17 Range/Units 17:28 WBC 3.5 L (4.3-11.1) K/mcL Hgb 7.7 L (12.9-16.9) g/dL Hct 24.1 L (37.5-50.1) % Plt Count 71 L (140-400) K/mcL Neutrophils # 2.5 (1.6-8.9) K/mcL BMP 08/24/17 00:37 Sodium 133 L Potassium 3.4 L Chloride 108 H Carbon Dioxide 22 L BUN 19 Creatinine 0.67 L Glucose 105 Calcium 7.5 L - ABG Interpretation ABG results: PT/INR, D-dimer PT 12.8 Seconds (9.4-12.1) H 08/23/17 12:44 - Attending Attestation I examined this patient and my medical decision-making was reviewed with the Resident Physician on 08/24/17. I agree with the documented findings, disposition and treatment plan as described except to the extent set forth below. Mr Remy is currently admitted for acute GI bleed. He remains moderate to high risk due to potential for worsening clinical status. Mr Remy is feeling OK. He is still somnolent from procedure. He is tolerating some PO at this time. Exam alert. Comfortable Mucus membranes dry Heart reg No wheeze Abd soft I/P 1. GI bleed 2. Anemia Further diagnoses and plan as above.
[2017-08-24] MEDS ORDERED: *HR* Propofol 200 MG/20 ML VIAL IVP ONE (09:13)
[2017-08-24] MEDS ORDERED: Lidocaine -MPF 2% 2 ML VIAL ONE (09:14)
[2017-08-24 10:50] LABS: Immature Granulocytes % 0.3 % (0-4); Red Cell Distribution Width 19.6 % (11.5-14.5)
[2017-08-24 10:52] LABS: Basophils % 0.6 %; Eosinophils # 0.1 K/mcL (0.0-0.6); Eosinophils % 3.2 %; Hematocrit 26.5 % (37.5-50.1); Hemoglobin 8.3 g/dL (12.9-16.9); Immature Platelets 8.8 % (1.1-6.1); Lymphocytes # 0.5 K/mcL (0.6-4.6); Lymphocytes % 16.8 %; Mean Corpuscular HGB Conc 31.3 g/dL (31.6-35.5); Mean Corpuscular Volume 86.3 fL (83.0-100.0); Mean Platelet Volume 12.5 fL (9.4-12.4); Monocytes # 0.3 K/mcL (0.0-1.3); Neutrophils # 2.1 K/mcL (1.6-8.9); Red Blood Count 3.07 M/mcL (4.19-5.50); Segmented Neutrophils % 68.1 %
[2017-08-24 10:57] LABS: Platelet Count 74 K/mcL (140-400)
--- NOTE | 2017-08-24 12:31 | Gastroenterology Consult Note ---
<Holly Hollins - Last Filed: 08/24/17 17:42> Date of Encounter: 08/24/17 Time of Encounter: 10:40 - Assessment and plan (1) GI bleed Current Visit: Yes Status: Acute Assessment and plan: s/p egd and colonoscopy which showed grade I varices and avms in the colon which were treated with apc. Monitor H&H, transfuse as needed. Continue PPI Qualifiers: GI bleed type/associated pathology: melena Qualified Code(s): K92.1 - Melena (2) History of esophageal varices Current Visit: Yes Status: Acute Assessment and plan: No bleeding on EGD, will need monitoring of esophageal varices longterm (3) Hepatitis C, chronic Current Visit: Yes Status: Acute Assessment and plan: pt interested in treatment options but has to abstain from ETOH first, will follow up as outpatient Qualifiers: Hepatic coma status: without hepatic coma Qualified Code(s): B18.2 - Chronic viral hepatitis C (4) ETOH abuse Current Visit: Yes Status: Acute (5) Advanced cirrhosis of liver Current Visit: Yes Status: Acute Assessment and plan: will follow as outpatient, advised abstinence from ETOH, no tylenol - Time Spent With Patient Total time spent is greater than 50% in coordination of care (as documented) at patient's floor/unit and/or counseling patient: GI History of Present Illness - Data of Consult Patient: new to practice Consult date: 08/23/17 Requesting Physician: Francia Jacobson MD - Consult Narrative Reason for consult: melena History of present illness: Mr. Remy is a 57 year old male with a significant PMH of cirrhotic liver, esophageal varices with numerous banding (last in September of 2016) He has had multiple GI bleeds with his last 6 months ago where he required banding and PRBC transfussion, EtOH abuse, Hepatitis C, and colon polyps with last colonoscopy within the past year. He presented to Dr Lo office yesterday with 4 day history of melena, progressing with weakness, fatigue and lethargy and was sent to the ER. Hgb was found to be 6.9 on admission. He denies NSAID use or Tylenol use do to his liver disease, he denies bloodthinners, coronary stents or pacemaker/defibrillator. He also denies any EtOH use in the past 2 weeks which is questioned by family at bedside. When he does drink he drinks 4+ mixed drinks (maybe more) in one setting. He denies withdrawl but did have a seizure 2 yrs ago which he denies from EtOH use. He describes the bleeding per rectum as non-painful, without diarrhea, nausea or bright red blood only melena. He feels this may be another bleeding varice. He recently moved from [place] to live with his sister here in [place], he has not estblished a PCP or Physical Chemist since moving to the area. He had EGD by Dr Bedoya yesterday which showed grade I varices, multiple scars from banding, gastritis, moderate portay hypertensive gastropathy, Colonoscopy: 08/24/17 2 avms one large in the ascending colon, nonbleeding internal hemorhoids and large non-bleeding rectal varices. Meld Na- 15 DF- 4.5 Child-pradhan score 8 points Colonoscopy: 08/24/17 2 avms one large in the ascending colon, nonbleeding internal hemorhoids and large non-bleeding rectal varices, EGD: 08/23/1718 grade I varices, multiple scars from banding, gastritis, moderate portay hypertensive gastropathy, NSAIDS/ASA: denies Anticoagulants: denies Past Med Surg Social Fam HX - Past Medical History Medical history: cirrhosis, GI bleed, hepatitis, hypertension, liver disease, RA Psychiatric history: anxiety - Past Surgical History Surgical History: other (esophageal banding, colon polyps) - Social History Smoking Status: Current every day smoker Smokeless Tobacco Status: No Alcohol use: none, recent Drug use: none - Family History Mother Grandmother Race: Hx Family Cancer: Yes Review of Systems: GI: as per HAVASUPAI GENERAL: denies fever, has some chills EYES: denies yellow discoloration ENT: denies pain with swallowing or difficulty swallowing CARDIO: denies chest pain, palpitations RESP: Shortness of breath with exertion : denies change in color of urine NEURO: weakness HEME: bruising MS: denies joint pain, joint swelling or back pain. DERM: denies rash or itching PSYCH: history of anxiety and depression - Constitutional Vitals: Temp Pulse Resp BP Pulse Ox 97.7 F 78 14 96/72 95 08/24/17 12:00 08/24/17 12:00 08/24/17 12:00 08/24/17 12:00 08/24/17 12:00 Exam: CONSTITUTIONAL:~lethargic.~HEAD:~normocephalic.~EYES:~no jaundice.~NECK:~no obvious swelling.~HEART:~regular rate and rhythm, no murmurs.~LUNGS:~bilateral fair air entry.~ABDOMEN:~non distended, ascites noted, soft, tender, no masses palpable, no organomegaly.~RECTAL EXAM:~Deferred.~EXTREMITIES:~no clubbing, cyanosis or edema.~SKIN:~no stigmata of chronic liver disease.~NEUROLOGIC:~no obvious focal defect.~~~~ Results - Labs CBC & Chem 7: 08/24/17 10:20 08/24/17 00:37 Labs: Last Result Calcium 7.5 mg/dL (8.6-10.3) L 08/24/17 00:37 Troponin I < 0.03 ng/mL (< 0.04) 08/23/17 17:28 Triglycerides 75 mg/dL (< 150) 08/23/17 17:28 Stool Occult Blood Positive (Negative) A 08/23/17 14:19 Entire Visit Hgb 8.3 g/dL (12.9-16.9) L 08/24/17 10:20 Hct 26.5 % (37.5-50.1) L 08/24/17 10:20 PT 12.8 Seconds (9.4-12.1) H 08/23/17 12:44 Total Bilirubin 1.3 mg/dL (0.3-1.0) H 08/23/17 17:28 AST 149 Units/L (13-39) H 08/23/17 17:28 ALT 127 Units/L (7-52) H 08/23/17 17:28 - ABG ABG results: PT/INR, D-dimer PT 12.8 Seconds (9.4-12.1) H 08/23/17 12:44 Consult Discharge Plan - Plan Referrals: NONE,PCP [Non-Partnered Physician] - <Shane Bedoya - Last Filed: 08/25/17 14:06> Date of Encounter: 08/24/17 Time of Encounter: 12:40 - Time Spent With Patient Total time spent is greater than 50% in coordination of care (as documented) at patient's floor/unit and/or counseling patient: GI History of Present Illness - Data of Consult Requesting Physician: Francia Jacobson MD - Consult Narrative History of present illness: Mr. Remy is a 57 year old male - Constitutional Vitals: Temp Pulse Resp BP Pulse Ox 98.5 F 92 16 108/77 94 08/25/17 11:27 08/25/17 12:50 08/25/17 11:27 08/25/17 11:27 08/25/17 11:27 Results - Labs CBC & Chem 7: 08/25/17 13:29 08/25/17 07:33 Labs: Last Result Calcium 7.1 mg/dL (8.6-10.3) L 08/25/17 07:33 Troponin I < 0.03 ng/mL (< 0.04) 08/23/17 17:28 Triglycerides 75 mg/dL (< 150) 08/23/17 17:28 Stool Occult Blood Positive (Negative) A 08/23/17 14:19 Entire Visit Hgb 7.8 g/dL (12.9-16.9) L 08/25/17 13:29 Hct 25.2 % (37.5-50.1) L 08/25/17 13:29 PT 12.8 Seconds (9.4-12.1) H 08/23/17 12:44 Total Bilirubin 1.3 mg/dL (0.3-1.0) H 08/23/17 17:28 AST 149 Units/L (13-39) H 08/23/17 17:28 ALT 127 Units/L (7-52) H 08/23/17 17:28 Ammonia 81 mcmol/L (16-53) H 08/24/17 13:42 - ABG ABG results: PT/INR, D-dimer PT 12.8 Seconds (9.4-12.1) H 08/23/17 12:44 - Attending Attestation I examined this patient and my medical decision-making was reviewed with the LABOR RELATIONS MANAGER. I agree with the documented findings, disposition and treatment plan as described except to the extent set forth below. Pt with Cirrhosis/hep C. Hx Of esophageal varives s/p banding. Now with melena. Rec: EGD-colon done. F/U GI out pt for cirrhosis/hep C management
[2017-08-24 17:54] LABS: Basophils % 0.6 %; Eosinophils # 0.1 K/mcL (0.0-0.6); Hematocrit 24.1 % (37.5-50.1); Hemoglobin 7.7 g/dL (12.9-16.9); Immature Granulocytes % 0.3 % (0-4); Lymphocytes # 0.5 K/mcL (0.6-4.6); Lymphocytes % 14.7 %; Mean Corpuscular Hemoglobin 27.2 pg (28.0-33.3); Mean Corpuscular Volume 85.2 fL (83.0-100.0); Mean Platelet Volume 13.2 fL (9.4-12.4); Monocytes # 0.4 K/mcL (0.0-1.3); Monocytes % 12.5 %; Neutrophils # 2.5 K/mcL (1.6-8.9); Red Blood Count 2.83 M/mcL (4.19-5.50); Red Cell Distribution Width 19.7 % (11.5-14.5); Segmented Neutrophils % 69.9 %
[2017-08-24 17:55] LABS: Platelet Count 71 K/mcL (140-400)
[2017-08-24 22:49] LABS: Basophils % 0.3 %; Eosinophils # 0.1 K/mcL (0.0-0.6); Eosinophils % 2.3 %; Hematocrit 23.4 % (37.5-50.1); Hemoglobin 7.4 g/dL (12.9-16.9); Immature Granulocytes % 0.3 % (0-4); Lymphocytes # 0.6 K/mcL (0.6-4.6); Lymphocytes % 20.7 %; Mean Corpuscular HGB Conc 31.6 g/dL (31.6-35.5); Mean Corpuscular Hemoglobin 27.1 pg (28.0-33.3); Mean Corpuscular Volume 85.7 fL (83.0-100.0); Mean Platelet Volume 12.1 fL (9.4-12.4); Monocytes # 0.4 K/mcL (0.0-1.3); Monocytes % 12.5 %; Red Blood Count 2.73 M/mcL (4.19-5.50); Red Cell Distribution Width 19.8 % (11.5-14.5); Segmented Neutrophils % 63.9 %
[2017-08-24 22:50] LABS: Platelet Count 64 K/mcL (140-400)
[2017-08-25 07:53] LABS: Basophils % 0.3 %; Immature Granulocytes % 0.3 % (0-4)
[2017-08-25 07:55] LABS: Eosinophils # 0.1 K/mcL (0.0-0.6); Eosinophils % 2.4 %; Hematocrit 24.4 % (37.5-50.1); Hemoglobin 7.5 g/dL (12.9-16.9); Immature Platelets 6.2 % (1.1-6.1); Lymphocytes # 0.7 K/mcL (0.6-4.6); Lymphocytes % 24.1 %; Mean Corpuscular HGB Conc 30.7 g/dL (31.6-35.5); Mean Corpuscular Hemoglobin 26.4 pg (28.0-33.3); Mean Corpuscular Volume 85.9 fL (83.0-100.0); Mean Platelet Volume 11.7 fL (9.4-12.4); Monocytes # 0.4 K/mcL (0.0-1.3); Monocytes % 12.5 %; Neutrophils # 1.8 K/mcL (1.6-8.9); Red Blood Count 2.84 M/mcL (4.19-5.50); Red Cell Distribution Width 19.9 % (11.5-14.5); Segmented Neutrophils % 60.4 %
[2017-08-25 08:29] LABS: Platelet Count 67 K/mcL (140-400)
[2017-08-25 08:31] LABS: Anisocytosis 1+ (Not Present); Platelet Estimate Decreased (Normal); Polychromasia 1+ (Not Present); Target Cells 1+ (Not Present)
[2017-08-25 08:52] LABS: BUN/Creatinine Ratio 16 (6-26); Blood Urea Nitrogen 11 mg/dL (6-20); Calcium 7.1 mg/dL (8.6-10.3); Carbon Dioxide 21 mEq/L (23-29); Chloride 109 mEq/L (98-107); Glucose 110 mg/dL (70-105); Osmolality,Calculated 276 (280-300); Potassium 3.8 mEq/L (3.5-5.1); Sodium 133 mEq/L (136-145); eGFR For African Americans > 60 (> 60); eGFR For Non-African Americans > 60 (> 60)
[2017-08-25] MEDS: ALPRAZolam 1 MG TABLET PO SCH ×3 (09:22→22:04)
[2017-08-25] MEDS: Pantoprazole 40 MG VIAL IVP SCH (09:22)
[2017-08-25] MEDS: Thiamine (B-1) 100 MG in 0.9 % Sodium Chloride 50 ML IVPB SCH (09:22)
[2017-08-25] MEDS: Folic Acid 1 MG in 0.9 % Sodium Chloride 50 ML IVPB SCH (09:22)
[2017-08-25] MEDS: *HR* OxyCODONE Immed Rel 15 MG TABLET PO PRN ×2 (09:37→17:03)
[2017-08-25 13:43] LABS: Hematocrit 25.2 % (37.5-50.1); Hemoglobin 7.8 g/dL (12.9-16.9)
--- NOTE | 2017-08-25 13:54 | Internal Med Progress Note ---
<Sergey Diez - Last Filed: 08/25/17 14:52> Date of Encounter: 08/25/17 Time of Encounter: 13:53 - Assessment and plan (1) GI bleed Current Visit: Yes Status: Acute Assessment and plan: Hx of recurrent GI bleeding in the setting of cirrhosis (liver) esophageal varices with previous banding. Presents with melena for 4 days. Hgb 6.9, thrombocytopenia secondary to liver disease. INR 1.2. Previous EGD and colonoscopies in [place] within the past year for GI bleeding. Never seen here in our system. Current Vitals: BP 99/63 ( lower from admission at 150's Systolic), HR 70's, No fever or tachypnea. Dx: bleeding esophageal varices, Peptic ulcers (yet asymptomatic), Colon polyps vs cancer. (melena would consider more likely upper GI bleeding) 08/24: Mr. Remy received 2 units PRBCs last evening, hemoglobin and a bimodal trend indicating active bleed. Continue no antiplatelet or anticoagulation. 08/25: Hgb stable around 7.5, with his known underlining medical problems, will give him 1 unit PRBCs. Colonoscopy findings: Single nonbleeding colonic angiodysplastic lesion treated with bipolar cautery. Nonbleeding internal hemorrhoids. Rectal varices. Plan: - Monitor H&H replace PRBCs if hemoglobin falls below 7.0 - Every 6 hours H&H - Given his significant history of recurrent esophageal and lower GI bleeding he will need follow-up with gastroenterology. Qualifiers: GI bleed type/associated pathology: melena Qualified Code(s): K92.1 - Melena (2) Hepatitis C, chronic Current Visit: Yes Status: Acute Assessment and plan: Chronic hx x 40+yrs Qualifiers: Hepatic coma status: without hepatic coma Qualified Code(s): B18.2 - Chronic viral hepatitis C (3) ETOH abuse Current Visit: Yes Status: Acute Assessment and plan: patient has a significant EtOH abuse hx, denies recent drink in the past 2 wks but that is questioned by family. - Drink of choice: Vodka and mixed drinks. -Continue on CIWA protocol. (4) Advanced cirrhosis of liver Current Visit: Yes Status: Acute Assessment and plan: Advanced Liver Cirrhosis possibly combination of Hepatitis C for decades + EtOH abuse - Elevated ammonia level, mild altered mental status but 80 secondary to medications versus encephalopathy. - Start lactulose, titrate to 2-3 bowel movements per day. (5) History of esophageal varices Current Visit: Yes Status: Acute Assessment and plan: Hx of Esophageal varices and bleeding, frequent banding events with last episode in September in [place]. - GI consulted. (6) Transaminitis Current Visit: Yes Status: Acute Assessment and plan: Elevated Liver enzymes likely from Hepatitis, may be partially EtOH abuse. - Monitor daily . Observe for other causes. (7) Thrombocytopenia Current Visit: Yes Status: Acute Assessment and plan: likely secondary to Liver disease (8) DVT prophylaxis Current Visit: Yes Status: Acute Assessment and plan: SCD for now. - Subjective Interval history: Said seen and evaluated this morning. He is lethargic and falling asleep while eating. He denies any pain, discomfort or concerns. He says he is waiting for discharge home. - Constitutional Vitals: Temp Pulse Resp BP Pulse Ox 98.5 F 92 16 108/77 94 08/25/17 11:27 08/25/17 12:50 08/25/17 11:27 08/25/17 11:27 08/25/17 11:27 General appearance: Present: cooperative, A&O X 3, pleasant, no acute distress, answers questions appropriately Exam: General: Patient alert, awake, interactive, in no acute distress HEENT: Normocephalic, atraumatic, pupils equal reactive to light, deviation of nasal bridge, chronic. oral mucosa moist, uvula midline, neck supple trachea midline no palpable lymphadenopathy, no thyromegaly. Chest: Symmetric bilateral correlating with respiratory effort, effort nonlabored. Cardiac: Regular rate and rhythm, positive S1 and S2. no bruits appreciated bilateral carotids, Radial pulses 2+ bilateral, posterior tibial and dorsal pedal pulses 2+ bilateral. Respiratory: Clear to auscultation all lung ceja Abdomen: Soft, nontender, hepatomegaly, positive bowel sounds, no palpable masses appreciated on examination Extremities: Symmetric bilateral, bilateral lower extremities without erythema or edema patient moving all 4 extremities spontaneously. Neurologic: No focal deficits appreciated on examination. Face symmetric, muscle strength symmetric bilateral upper and lower extremities. Internal Medicine: Result - Labs CBC & Chem 7: 08/25/17 13:29 08/25/17 07:33 Labs: Short CBC 08/24/17 08/24/17 08/25/17 Range/Units 17:28 22:42 07:33 WBC 3.5 L 3.1 L 3.0 L (4.3-11.1) K/mcL Hgb 7.7 L 7.4 L 7.5 L (12.9-16.9) g/dL Hct 24.1 L 23.4 L 24.4 L (37.5-50.1) % Plt Count 71 L 64 L 67 L (140-400) K/mcL Neutrophils # 2.5 2.0 1.8 (1.6-8.9) K/mcL 08/25/17 Range/Units 13:29 WBC (4.3-11.1) K/mcL Hgb 7.8 L (12.9-16.9) g/dL Hct 25.2 L (37.5-50.1) % Plt Count (140-400) K/mcL Neutrophils # (1.6-8.9) K/mcL BMP 08/25/17 07:33 Sodium 133 L Potassium 3.8 Chloride 109 H Carbon Dioxide 21 L BUN 11 Creatinine 0.70 Glucose 110 H Calcium 7.1 L - ABG Interpretation ABG results: PT/INR, D-dimer PT 12.8 Seconds (9.4-12.1) H 08/23/17 12:44 Consult Discharge Plan - Plan Referrals: NONE,PCP [Non-Partnered Physician] - <Philippe Crane - Last Filed: 08/25/17 17:39> Date of Encounter: 08/25/17 - Assessment and plan (1) GI bleed Current Visit: Yes Status: Acute Qualifiers: GI bleed type/associated pathology: melena Qualified Code(s): K92.1 - Melena (2) AVM (arteriovenous malformation) of colon Current Visit: Yes Status: Chronic (3) Acute post-hemorrhagic anemia Current Visit: Yes Status: Acute (4) Cirrhosis, alcoholic Current Visit: Yes Status: Chronic Qualifiers: Ascites presence: without ascites Qualified Code(s): K70.30 - Alcoholic cirrhosis of liver without ascites (5) Hepatitis C, chronic Current Visit: Yes Status: Acute Qualifiers: Hepatic coma status: without hepatic coma Qualified Code(s): B18.2 - Chronic viral hepatitis C (6) Transaminitis Current Visit: Yes Status: Acute (7) Thrombocytopenia Current Visit: Yes Status: Acute (8) ETOH abuse Current Visit: Yes Status: Acute (9) History of esophageal varices Current Visit: Yes Status: Acute - Constitutional Vitals: Temp Pulse Resp BP Pulse Ox 97.9 F 92 18 116/76 99 08/25/17 15:28 08/25/17 15:32 08/25/17 15:28 08/25/17 15:28 08/25/17 15:28 Internal Medicine: Result - Labs CBC & Chem 7: 08/25/17 13:29 08/25/17 07:33 Labs: Short CBC 08/24/17 08/24/17 08/25/17 Range/Units 17:28 22:42 07:33 WBC 3.5 L 3.1 L 3.0 L (4.3-11.1) K/mcL Hgb 7.7 L 7.4 L 7.5 L (12.9-16.9) g/dL Hct 24.1 L 23.4 L 24.4 L (37.5-50.1) % Plt Count 71 L 64 L 67 L (140-400) K/mcL Neutrophils # 2.5 2.0 1.8 (1.6-8.9) K/mcL 08/25/17 Range/Units 13:29 WBC (4.3-11.1) K/mcL Hgb 7.8 L (12.9-16.9) g/dL Hct 25.2 L (37.5-50.1) % Plt Count (140-400) K/mcL Neutrophils # (1.6-8.9) K/mcL BMP 08/25/17 07:33 Sodium 133 L Potassium 3.8 Chloride 109 H Carbon Dioxide 21 L BUN 11 Creatinine 0.70 Glucose 110 H Calcium 7.1 L - ABG Interpretation ABG results: PT/INR, D-dimer PT 12.8 Seconds (9.4-12.1) H 08/23/17 12:44 - Attending Attestation I examined this patient and my medical decision-making was reviewed with the Resident Physician on 08/25/17. I agree with the documented findings, disposition and treatment plan as described except to the extent set forth below. Mr Remy is currently admitted for acute GI bleed and anemia. He remains moderate to high risk due to potential for worsening clinical status. Mr Said denies pain at this time. No fever. No further bleeding noted. H/H low today - to receive blood. Exam alert> Comfortable Mucus membranes dry Heart reg No wheeze I/P 1. GI bleed 2. Anemia Transfuse one unit Check ammonia Transfer out of 2N - no tele If h/h stable anticipate d/c tomorrow Further diagnoses and plan as above.
[2017-08-25] MEDS: Lactulose Oral Soln 20 GM/30 ML UDC PO SCH ×2 (15:24→22:04)
[2017-08-25 21:13] LABS: Hematocrit 28.2 % (37.5-50.1); Hemoglobin 8.8 g/dL (12.9-16.9)
[2017-08-26] MEDS: *HR* OxyCODONE Immed Rel 15 MG TABLET PO PRN (03:06)
[2017-08-26 05:43] LABS: Hemoglobin 9.2 g/dL (12.9-16.9); Immature Granulocytes % 0.3 % (0-4)
[2017-08-26 05:45] LABS: Basophils % 0.8 %; Eosinophils # 0.1 K/mcL (0.0-0.6); Eosinophils % 2.3 %; Immature Platelets 6.5 % (1.1-6.1); Lymphocytes # 0.8 K/mcL (0.6-4.6); Lymphocytes % 18.8 %; Mean Corpuscular HGB Conc 31.7 g/dL (31.6-35.5); Mean Corpuscular Hemoglobin 27.2 pg (28.0-33.3); Mean Corpuscular Volume 85.8 fL (83.0-100.0); Mean Platelet Volume 12.3 fL (9.4-12.4); Monocytes # 0.6 K/mcL (0.0-1.3); Monocytes % 14.8 %; Neutrophils # 2.5 K/mcL (1.6-8.9); Red Blood Count 3.38 M/mcL (4.19-5.50); Red Cell Distribution Width 19.3 % (11.5-14.5)
[2017-08-26 05:51] LABS: Platelet Count 85 K/mcL (140-400)
[2017-08-26 06:00] LABS: Alanine Aminotransferase 173 Units/L (7-52); Albumin 2.8 g/dL (3.5-5.7); Albumin/Globulin Ratio 0.9 (1.1-2.2); Alkaline Phosphatase 125 Units/L (34-104); Aspartate Amino Transferase 179 Units/L (13-39); BUN/Creatinine Ratio 16 (6-26); Bilirubin,Total 1.4 mg/dL (0.3-1.0); Blood Urea Nitrogen 10 mg/dL (6-20); Calcium 7.5 mg/dL (8.6-10.3); Carbon Dioxide 23 mEq/L (23-29); Chloride 109 mEq/L (98-107); Globulin 3.1 g/dL (2.4-3.5); Glucose 93 mg/dL (70-105); Osmolality,Calculated 279 (280-300); Potassium 3.9 mEq/L (3.5-5.1); Sodium 135 mEq/L (136-145); Total Protein 5.9 g/dL (6.4-8.9); eGFR For African Americans > 60 (> 60); eGFR For Non-African Americans > 60 (> 60)
[2017-08-26 06:12] LABS: Anisocytosis 1+ (Not Present); Platelet Estimate Decreased (Normal)
[2017-08-26 06:13] LABS: Polychromasia 1+ (Not Present)
--- NOTE | 2017-08-26 07:41 | Internal Med Progress Note ---
Date of Encounter: 08/26/17 Time of Encounter: 07:41 - Assessment and plan (1) GI bleed Current Visit: Yes Status: Acute Assessment and plan: Hx of recurrent GI bleeding in the setting of cirrhosis (liver) esophageal varices with previous banding. Presents with melena for 4 days. Hgb 6.9, thrombocytopenia secondary to liver disease. INR 1.2. Previous EGD and colonoscopies in [place] within the past year for GI bleeding. Never seen here in our system. Current Vitals: BP 99/63 ( lower from admission at 150's Systolic), HR 70's, No fever or tachypnea. Dx: bleeding esophageal varices, Peptic ulcers (yet asymptomatic), Colon polyps vs cancer. (melena would consider more likely upper GI bleeding) 08/24: Mr. Remy received 2 units PRBCs last evening, hemoglobin and a bimodal trend indicating active bleed. Continue no antiplatelet or anticoagulation. 08/25: Hgb stable around 7.5, with his known underlining medical problems, will give him 1 unit PRBCs. Colonoscopy findings: Single nonbleeding colonic angiodysplastic lesion treated with bipolar cautery. Nonbleeding internal hemorrhoids. Rectal varices. Plan: - Monitor H&H replace PRBCs if hemoglobin falls below 7.0 - Every 6 hours H&H - Given his significant history of recurrent esophageal and lower GI bleeding he will need follow-up with gastroenterology. Qualifiers: GI bleed type/associated pathology: melena Qualified Code(s): K92.1 - Melena (2) Hepatitis C, chronic Current Visit: Yes Status: Acute Assessment and plan: Chronic hx x 40+yrs Qualifiers: Hepatic coma status: without hepatic coma Qualified Code(s): B18.2 - Chronic viral hepatitis C (3) ETOH abuse Current Visit: Yes Status: Acute Assessment and plan: patient has a significant EtOH abuse hx, denies recent drink in the past 2 wks but that is questioned by family. - Drink of choice: Vodka and mixed drinks. -Continue on CIWA protocol. (4) Advanced cirrhosis of liver Current Visit: Yes Status: Acute Assessment and plan: Advanced Liver Cirrhosis possibly combination of Hepatitis C for decades + EtOH abuse - Elevated ammonia level, mild altered mental status but 80 secondary to medications versus encephalopathy. - Start lactulose, titrate to 2-3 bowel movements per day. (5) History of esophageal varices Current Visit: Yes Status: Acute Assessment and plan: Hx of Esophageal varices and bleeding, frequent banding events with last episode in September in [place]. - GI consulted. (6) Transaminitis Current Visit: Yes Status: Acute Assessment and plan: Elevated Liver enzymes likely from Hepatitis, may be partially EtOH abuse. - Monitor daily . Observe for other causes. (7) Thrombocytopenia Current Visit: Yes Status: Acute Assessment and plan: likely secondary to Liver disease (8) DVT prophylaxis Current Visit: Yes Status: Acute Assessment and plan: SCD for now. - Subjective Interval history: Said seen and evaluated this morning. He is lethargic and falling asleep while eating. He denies any pain, discomfort or concerns. He says he is waiting for discharge home. - Constitutional Vitals: Temp Pulse Resp BP Pulse Ox 98.0 F 75 16 106/70 97 08/26/17 06:53 08/26/17 06:53 08/26/17 06:53 08/26/17 06:53 08/26/17 06:53 General appearance: Present: cooperative, A&O X 3, pleasant, no acute distress, answers questions appropriately Internal Medicine: Result - Labs CBC & Chem 7: 08/26/17 05:31 08/26/17 05:31 Labs: Short CBC 08/25/17 08/25/17 08/25/17 Range/Units 07:33 13:29 21:03 WBC 3.0 L (4.3-11.1) K/mcL Hgb 7.5 L 7.8 L 8.8 L (12.9-16.9) g/dL Hct 24.4 L 25.2 L 28.2 L (37.5-50.1) % Plt Count 67 L (140-400) K/mcL Neutrophils # 1.8 (1.6-8.9) K/mcL 08/26/17 Range/Units 05:31 WBC 4.0 L (4.3-11.1) K/mcL Hgb 9.2 L (12.9-16.9) g/dL Hct 29.0 L (37.5-50.1) % Plt Count 85 L (140-400) K/mcL Neutrophils # 2.5 (1.6-8.9) K/mcL BMP 08/25/17 08/26/17 07:33 05:31 Sodium 133 L 135 L Potassium 3.8 3.9 Chloride 109 H 109 H Carbon Dioxide 21 L 23 BUN 11 10 Creatinine 0.70 0.64 L Glucose 110 H 93 Calcium 7.1 L 7.5 L Liver Function 08/26/17 Range/Units 05:31 Total Bilirubin 1.4 H (0.3-1.0) mg/dL AST 179 H (13-39) Units/L ALT 173 H (7-52) Units/L Alkaline Phosphatase 125 H (34-104) Units/L Albumin 2.8 L (3.5-5.7) g/dL - ABG Interpretation ABG results: PT/INR, D-dimer PT 12.8 Seconds (9.4-12.1) H 08/23/17 12:44 Consult Discharge Plan - Plan Referrals: NONE,PCP [Non-Partnered Physician] -
--- NOTE | 2017-08-26 07:55 | Discharge Summary ---
Date of Encounter: 08/26/17 Time of Encounter: 07:48 - Discharge Diagnosis (1) GI bleed Priority: Primary Status: Acute Qualifiers: GI bleed type/associated pathology: melena Qualified Code(s): K92.1 - Melena (2) Hepatitis C, chronic Priority: Primary Status: Acute Qualifiers: Hepatic coma status: without hepatic coma Qualified Code(s): B18.2 - Chronic viral hepatitis C (3) ETOH abuse Priority: Primary Status: Acute (4) Advanced cirrhosis of liver Priority: Secondary Status: Acute (5) History of esophageal varices Priority: Secondary Status: Acute (6) Transaminitis Priority: Secondary Status: Acute (7) Thrombocytopenia Priority: Secondary Status: Acute (8) DVT prophylaxis Priority: Secondary Status: Acute - Discharge Medications Home Medications: ALPRAZolam [Xanax 1 MG Tablet] 1 mg PO TID 08/23/17 [History] Dronabinol [Marinol] 5 mg PO BID 08/23/17 [History] Furosemide [Lasix] 40 mg PO DAILY 08/23/17 [History] OxyCODONE Immed Rel [Roxicodone 15 MG] 15 mg PO Q6HR PRN 08/23/17 [History] Propranolol [Inderal] 20 mg PO BID 08/23/17 [History] Spironolactone [Aldactone] 25 mg PO DAILY 08/23/17 [History] Allergies/Adverse Reactions: 3 Allergy/AdvReac Type Severity Reaction Status Date / Time No Known Allergies Allergy Verified 08/23/17 14:10 Procedures/tests Complete & Pending: Procedures Performed prior 72 hours Category Date Time Status ECG 12 lead ECG [ECG] AM 0600 Y 08/24/17 06:00 Ordered Date of admission: 08/23/17 16:11 Primary care physician: Seymour West MD Consults: 08/23/17 16:59 Consult to Administrative Support Coordinator [CONS] Routine Reason for SW Consult: EtOh abuse Discharging clinician: Sergey Diez Anticipated date of discharge: 08/26/17 - Patient Status Disposition: Home, Self-Care Condition: Fair Functional capacity at discharge: independent ambulation Overall status at discharge: patient is progressing back to baseline - Discharge Instructions Follow Up With: NONE,PCP [Non-Partnered Physician] - Additional Instructions: Follow up with PCP in the next 3-5 days take medications as prescribed follow up with gastroenterology - Diet and Activity Activity: increase activity as tolerated Diet: advance to your usual diet Hospital course: Mr. Remy is a 57 year old male - Time Spent with Patient Total time spent providing and/or coordinating discharge services: - Constitutional Vitals: Temp Pulse Resp BP Pulse Ox 98.0 F 75 16 106/70 97 08/26/17 06:53 08/26/17 06:53 08/26/17 06:53 08/26/17 06:53 08/26/17 06:53 General appearance: Present: cooperative, A&O X 3, pleasant, no acute distress, answers questions appropriately Exam: General: Patient awake, alert and interactive HEENT: Normocephalic, atraumatic, pupils equal reactive to light, deviation of nasal bridge, chronic. oral mucosa moist, uvula midline, neck supple trachea midline no palpable lymphadenopathy, no thyromegaly. Chest: Symmetric bilateral correlating with respiratory effort, effort nonlabored. Cardiac: Regular rate and rhythm, positive S1 and S2. no bruits appreciated bilateral carotids, Radial pulses 2+ bilateral, posterior tibial and dorsal pedal pulses 2+ bilateral. Respiratory: Clear to auscultation all lung ceja Abdomen: Soft, nontender, hepatomegaly, positive bowel sounds, no palpable masses appreciated on examination Extremities: Symmetric bilateral, bilateral lower extremities without erythema or edema patient moving all 4 extremities spontaneously. Neurologic: No focal deficits appreciated on examination. Face symmetric, muscle strength symmetric bilateral upper and lower extremities.
[2017-08-26] MEDS: Pantoprazole 40 MG VIAL IVP SCH (08:49)
[2017-08-26] MEDS: Lactulose Oral Soln 20 GM/30 ML UDC PO SCH ×2 (08:49→21:20)
[2017-08-26] MEDS: Spironolactone 25 MG TABLET PO SCH (08:51)
[2017-08-26] MEDS: Thiamine (B-1) 100 MG, Folic Acid 1 MG in 0.9 % Sodium Chloride 50 ML IVPB SCH (08:51)
[2017-08-26] MEDS: ALPRAZolam 1 MG TABLET PO SCH (08:52)
[2017-08-26] MEDS: Nicotine 21 MG PATCH.TD24 TD SCH (11:46)
--- NOTE | 2017-08-26 17:58 | Internal Med Progress Note ---
<Sergey Diez - Last Filed: 08/26/17 17:55> Date of Encounter: 08/26/17 Time of Encounter: 10:05 - Assessment and plan (1) GI bleed Current Visit: Yes Status: Acute Assessment and plan: Hx of recurrent GI bleeding in the setting of cirrhosis (liver) esophageal varices with previous banding. Presents with melena for 4 days. Hgb 6.9, thrombocytopenia secondary to liver disease. INR 1.2. Previous EGD and colonoscopies in [place] within the past year for GI bleeding. Never seen here in our system. Current Vitals: BP 99/63 ( lower from admission at 150's Systolic), HR 70's, No fever or tachypnea. Dx: bleeding esophageal varices, Peptic ulcers (yet asymptomatic), Colon polyps vs cancer. (melena would consider more likely upper GI bleeding) 08/24: Mr. Remy received 2 units PRBCs last evening, hemoglobin and a bimodal trend indicating active bleed. Continue no antiplatelet or anticoagulation. 08/25: Hgb stable around 7.5, with his known underlining medical problems, will give him 1 unit PRBCs. Colonoscopy findings: Single nonbleeding colonic angiodysplastic lesion treated with bipolar cautery. Nonbleeding internal hemorrhoids. Rectal varices. 08/26: hgb stable. follow up outpatient with gastroenterology Plan: - Monitor H&H replace PRBCs if hemoglobin falls below 7.0 - Every 6 hours H&H - Patient stable for discharge from GI bleeding stand point - Given his significant history of recurrent esophageal and lower GI bleeding he will need follow-up with gastroenterology. Qualifiers: GI bleed type/associated pathology: melena Qualified Code(s): K92.1 - Melena (2) Hepatitis C, chronic Current Visit: Yes Status: Acute Assessment and plan: Chronic hx x 40+yrs Qualifiers: Hepatic coma status: without hepatic coma Qualified Code(s): B18.2 - Chronic viral hepatitis C (3) ETOH abuse Current Visit: Yes Status: Acute Assessment and plan: patient has a significant EtOH abuse hx, denies recent drink in the past 2 wks but that is questioned by family. - Drink of choice: Vodka and mixed drinks. - NO withdrawl symptoms yet. -Continue on CIWA protocol. (4) Advanced cirrhosis of liver Current Visit: Yes Status: Acute Assessment and plan: Advanced Liver Cirrhosis possibly combination of Hepatitis C for decades + EtOH abuse Patient showing signs of lethargy and sedation. Will hold PO opiates and Benzos and increase Lactulose with Ammonia level of 74. - Elevated ammonia level, mild altered mental status but 80 secondary to medications versus encephalopathy. - increase lactulose 20mg PO BID, titrate to 2-3 bowel movements per day. (5) History of esophageal varices Current Visit: Yes Status: Acute (6) Transaminitis Current Visit: Yes Status: Acute Assessment and plan: Elevated Liver enzymes likely from Hepatitis, may be partially EtOH abuse. - Monitor daily . Observe for other causes. (7) Thrombocytopenia Current Visit: Yes Status: Acute Assessment and plan: likely secondary to Liver disease (8) DVT prophylaxis Current Visit: Yes Status: Acute Assessment and plan: SCDs - Subjective Interval history: Said seen and evaluated today. He is very drowsy and was seeing people moving furniture in the hallway. He denies any pain, N/V/D/C or seeing blood/ melena in his stools or sputum. He had difficulty answering questions how drowsy he was. - Constitutional Vitals: Temp Pulse Resp BP Pulse Ox 99.0 F 76 16 118/75 97 08/26/17 14:21 08/26/17 14:21 08/26/17 14:21 08/26/17 14:21 08/26/17 14:21 General appearance: Present: cooperative, A&O X 3, pleasant, no acute distress, answers questions appropriately Internal Medicine: Result - Labs CBC & Chem 7: 08/26/17 05:31 08/26/17 05:31 Labs: Short CBC 08/25/17 08/26/17 Range/Units 21:03 05:31 WBC 4.0 L (4.3-11.1) K/mcL Hgb 8.8 L 9.2 L (12.9-16.9) g/dL Hct 28.2 L 29.0 L (37.5-50.1) % Plt Count 85 L (140-400) K/mcL Neutrophils # 2.5 (1.6-8.9) K/mcL BMP 08/26/17 05:31 Sodium 135 L Potassium 3.9 Chloride 109 H Carbon Dioxide 23 BUN 10 Creatinine 0.64 L Glucose 93 Calcium 7.5 L Liver Function 08/26/17 Range/Units 05:31 Total Bilirubin 1.4 H (0.3-1.0) mg/dL AST 179 H (13-39) Units/L ALT 173 H (7-52) Units/L Alkaline Phosphatase 125 H (34-104) Units/L Albumin 2.8 L (3.5-5.7) g/dL - ABG Interpretation ABG results: PT/INR, D-dimer PT 12.8 Seconds (9.4-12.1) H 08/23/17 12:44 Consult Discharge Plan - Plan Additional Instructions: Follow up with PCP in the next 3-5 days take medications as prescribed follow up with gastroenterology Referrals: NONE,PCP [Non-Partnered Physician] - <Philippe Crane - Last Filed: 08/26/17 18:24> Date of Encounter: 08/26/17 - Assessment and plan (1) Acute hepatic encephalopathy Current Visit: Yes Status: Acute Assessment and plan: On lactulose (2) GI bleed Current Visit: Yes Status: Acute Qualifiers: GI bleed type/associated pathology: melena Qualified Code(s): K92.1 - Melena (3) AVM (arteriovenous malformation) of colon Current Visit: Yes Status: Chronic (4) Acute post-hemorrhagic anemia Current Visit: Yes Status: Acute (5) Cirrhosis, alcoholic Current Visit: Yes Status: Chronic Qualifiers: Ascites presence: without ascites Qualified Code(s): K70.30 - Alcoholic cirrhosis of liver without ascites (6) Hepatitis C, chronic Current Visit: Yes Status: Acute Qualifiers: Hepatic coma status: without hepatic coma Qualified Code(s): B18.2 - Chronic viral hepatitis C (7) Transaminitis Current Visit: Yes Status: Acute (8) Thrombocytopenia Current Visit: Yes Status: Acute (9) ETOH abuse Current Visit: Yes Status: Acute (10) History of esophageal varices Current Visit: Yes Status: Acute - Constitutional Vitals: Temp Pulse Resp BP Pulse Ox 99.0 F 76 16 118/75 97 08/26/17 14:21 08/26/17 14:21 08/26/17 14:21 08/26/17 14:21 08/26/17 14:21 Internal Medicine: Result - Labs CBC & Chem 7: 08/26/17 05:31 08/26/17 05:31 Labs: Short CBC 08/25/17 08/26/17 Range/Units 21:03 05:31 WBC 4.0 L (4.3-11.1) K/mcL Hgb 8.8 L 9.2 L (12.9-16.9) g/dL Hct 28.2 L 29.0 L (37.5-50.1) % Plt Count 85 L (140-400) K/mcL Neutrophils # 2.5 (1.6-8.9) K/mcL BMP 08/26/17 05:31 Sodium 135 L Potassium 3.9 Chloride 109 H Carbon Dioxide 23 BUN 10 Creatinine 0.64 L Glucose 93 Calcium 7.5 L Liver Function 08/26/17 Range/Units 05:31 Total Bilirubin 1.4 H (0.3-1.0) mg/dL AST 179 H (13-39) Units/L ALT 173 H (7-52) Units/L Alkaline Phosphatase 125 H (34-104) Units/L Albumin 2.8 L (3.5-5.7) g/dL - ABG Interpretation ABG results: PT/INR, D-dimer PT 12.8 Seconds (9.4-12.1) H 08/23/17 12:44 - Attending Attestation I examined this patient and my medical decision-making was reviewed with the Resident Physician on 08/26/17. I agree with the documented findings, disposition and treatment plan as described except to the extent set forth below. Mr Remy is currently admitted for acute GI bleed. He has been encephalopathic today due to meds. He remains moderate to high risk due to potential for worsening clinical status. Mr Remy was somnolent this AM. Meds were held and he has improved some but not baseline. His sister is at bedside and feels she cannot take care of him at this time. No focal deficit. Exam alert. Agitated and paranoid Heart reg No wheeze Abd soft I/P 1. Encephalopathy 2. GI bleed Further diagnoses and plan as above.
[2017-08-27] MEDS: Nicotine 21 MG PATCH.TD24 TD SCH (08:52)
[2017-08-27] MEDS: Spironolactone 25 MG TABLET PO SCH (08:53)
[2017-08-27] MEDS: Lactulose Oral Soln 20 GM/30 ML UDC PO SCH (08:53)
[2017-08-27] MEDS: Thiamine (B-1) 100 MG, Folic Acid 1 MG in 0.9 % Sodium Chloride 50 ML IVPB SCH (08:54)
--- NOTE | 2017-08-27 09:54 | Discharge Summary ---
<Kailash Guardado - Last Filed: 08/27/17 13:58> Date of Encounter: 08/27/17 Time of Encounter: 09:50 - Discharge Diagnosis (1) GI bleed Priority: Primary Status: Suspected Qualifiers: GI bleed type/associated pathology: melena Qualified Code(s): K92.1 - Melena (2) Hepatitis C, chronic Priority: Secondary Status: Chronic Qualifiers: Hepatic coma status: without hepatic coma Qualified Code(s): B18.2 - Chronic viral hepatitis C (3) Advanced cirrhosis of liver Priority: Secondary Status: Chronic (4) Acute hepatic encephalopathy Priority: Secondary Status: Resolved - Discharge Medications Prescriptions: ALPRAZolam [Xanax 1 MG Tablet] 1 mg PO DAILY 7 Days #7 tablet Lactulose 20 gm PO BID #500 ml Omeprazole [PriLOSEC] 20 mg PO DAILY #30 capsule. OxyCODONCarlene Immed Rel [Roxicodone 5 MG] 5 mg PO BID PRN 7 Days #14 tablet PRN Reason: Pain Home Medications: Dronabinol [Marinol] 5 mg PO BID 08/23/17 [History] Furosemide [Lasix] 40 mg PO DAILY 08/23/17 [History] Propranolol [Inderal] 20 mg PO BID 08/23/17 [History] Spironolactone [Aldactone] 25 mg PO DAILY 08/23/17 [History] ALPRAZolam [Xanax 1 MG Tablet] 1 mg PO DAILY 7 Days #7 tablet 08/27/17 [Rx] Lactulose 20 gm PO BID #500 ml 08/27/17 [Rx] Omeprazole [PriLOSEC] 20 mg PO DAILY #30 capsule. 08/27/17 [Rx] OxyCODONE Immed Rel [Roxicodone 5 MG] 5 mg PO BID PRN 7 Days #14 tablet [Rx] Allergies/Adverse Reactions: 3 Allergy/AdvReac Type Severity Reaction Status Date / Time No Known Allergies Allergy Verified 08/23/17 14:10 Date of admission: 08/23/17 16:11 Primary care physician: Seymour West MD Consults: 08/23/17 16:59 Consult to Printing Sales Representative [CONS] Routine Reason for SW Consult: EtOh abuse Discharging clinician: Kailash Guardado Anticipated date of discharge: 08/27/17 - Patient Status Disposition: Home, Self-Care Condition: Fair Functional capacity at discharge: independent ambulation Overall status at discharge: patient is progressing back to baseline - Discharge Instructions Follow Up With: Seymour West MD [Primary Care Provider] - 08/31/17 1:15 pm (within 1 week) Shane Bedoya MD [Partnered Physician] - (2-3 weeks) Additional Instructions: Follow up with PCP in the next 3-5 days take medications as prescribed follow up with gastroenterology - Diet and Activity Activity: ambulate only with your walker, increase activity as tolerated Diet: advance to your usual diet Interval History: Patient seen and examined at bedside. Patient states he feels pretty good today. He does report some mild left-sided flank pain that is chronic in nature. He denies urinary symptoms. He denies any recent confusion, falls. Hospital course: Mr. Remy is a 57 year old male with history of chronic hepatitis C, cirrhosis, hepatic encephalopathy who was admitted for GI bleed in the setting of esophageal varices. He had reported a 4 day history of melena. Patient received 2 units of packed red blood cells and underwent EGD with treatment of grade 1 varices with argon plasma coagulation. Since hemoglobin remained stable and continued to rise throughout his hospital stay. He had no further episodes of bleeding. On the day prior to discharge he was somewhat confused. Lactulose was initiated given his hepatic encephalopathy in his mental status had returned to baseline at that day of discharge. He was on chronic opioid and benzodiazepine therapy. This was continued but much reduced doses given his acute liver failure. She was discharged home in stable condition. - Time Spent with Patient Total time spent providing and/or coordinating discharge services: - Constitutional Vitals: Temp Pulse Resp BP Pulse Ox 98.6 F 75 16 130/70 92 08/27/17 07:58 08/27/17 07:58 08/27/17 07:58 08/27/17 07:58 08/27/17 07:58 General appearance: Present: cooperative, A&O X 3, pleasant, no acute distress, answers questions appropriately - Respiratory Respiratory exam: Present: CTAB. Absent: rales, rhonchi, wheezes - Cardiovascular Cardiovascular exam: Present: RRR. Absent: gallop, rubs, systolic murmur - GI/Abdominal GI/Abdominal exam: Present: distended, normal bowel sounds, soft. Absent: tenderness - Extremities Exam Extremities exam: Present: pedal edema (Trace) - Neurological Exam Neurological exam: Present: alert, oriented X3, no focal deficits <Philippe Crane - Last Filed: 08/27/17 18:44> Date of Encounter: 08/27/17 - Discharge Diagnosis (1) Acute hepatic encephalopathy Status: Resolved (2) GI bleed Status: Suspected Qualifiers: GI bleed type/associated pathology: melena Qualified Code(s): K92.1 - Melena (3) AVM (arteriovenous malformation) of colon Priority: Primary Status: Chronic (4) Acute post-hemorrhagic anemia Priority: Secondary Status: Acute (5) Cirrhosis, alcoholic Priority: Secondary Status: Chronic Qualifiers: Ascites presence: without ascites Qualified Code(s): K70.30 - Alcoholic cirrhosis of liver without ascites (6) Hepatitis C, chronic Status: Chronic Qualifiers: Hepatic coma status: without hepatic coma Qualified Code(s): B18.2 - Chronic viral hepatitis C (7) Transaminitis Priority: Secondary Status: Acute (8) Thrombocytopenia Priority: Secondary Status: Acute (9) ETOH abuse Priority: Secondary Status: Acute (10) History of esophageal varices Priority: Secondary Status: Acute (11) Tobacco abuse Priority: Secondary Status: Chronic Date of admission: 08/23/17 16:11 Primary care physician: Seymour West MD Consults: 08/23/17 16:59 Consult to Printing Sales Representative [CONS] Routine Reason for SW Consult: EtOh abuse Hospital course: Mr. Remy is a 57 year old male - Time Spent with Patient Total time spent providing and/or coordinating discharge services: 38min - Constitutional Vitals: Temp Pulse Resp BP Pulse Ox 98.9 F 75 16 126/82 96 08/27/17 11:27 08/27/17 11:27 08/27/17 11:27 08/27/17 11:27 08/27/17 11:27 - Attending Attestation I examined this patient and my medical decision-making was reviewed with the Resident Physician on 08/27/17. I agree with the documented findings, disposition and treatment plan as described except to the extent set forth below. Mr Remy has been admitted for acute GI bleed and anemia. He is afebrile with stable vitals and mental status has improved. He is ready for discharge. Exam Alert. Comfortable Heart regular No wheeze Plan D/C home
[2017-08-27 11:30] VITALS: BP 126/82
== END 2017-08-27 12:06 | disposition home or self-care (01) | DRG 368 ==
LOC: EMEROO 12:01 → 2NNU 16:11 → SUATTDRO 16:11 → 2NNU 17:21 → 3ANU 08-25 18:28
PROVIDERS: ADMIT Internal Medicine; ATTEND Internal Medicine
PROC: ENDOCCB (2017-08-24 09:00)

== ENCOUNTER 2018-01-11 08:19 | Inpatient (IN) ==
[2018-01-11] MEDS ORDERED: Ondansetron 4 MG/2 ML VIAL IVP ONE ×2 (08:36→11:16)
[2018-01-11] MEDS ORDERED: cefTRIAXone 1,000 MG in Water for inj. (sterile) 20 ML 10 ML IVP ONE (08:36)
[2018-01-11] MEDS ORDERED: 0.9 % Sodium Chloride 1,000 ML IVC ONE (08:36)
[2018-01-11] MEDS ORDERED: Pantoprazole 80 MG in 0.9 % Sodium Chloride 50 ML IVPB ONE (08:36)
--- NOTE | 2018-01-11 08:44 | Emergency Department Note ---
Disposition Clinical Impression: History of esophageal varices, Upper GI bleed Disposition: Still a Patient Condition: Fair Referrals: Seymour West MD [Primary Care Provider] - Forms: ED Satisfaction Letter Time of Disposition: 09:51 GI Bleed HPI - General Chief complaint: ED GI Bleed Stated complaint: GI Bleed Time Seen by Provider: 01/11/18 08:23 Source: patient Limitations: no limitations Nursing Notes Reviewed: Yes Vital Signs Reviewed: Yes - History of Present Illness HPI Narrative: 57-year-old male presents for evaluation of hematemesis. He has had several episodes of hematemesis this morning. Associated with nausea and generalized weakness. He describes mixed fluid with dark red blood; total emesis volume of approximately 32 ounces. He has a history of hepatic cirrhosis secondary to hepatitis C and prior EtOH abuse, history of esophageal varices with numerous banding as well as the need for the PRBC transfusion. No NSAID, aspirin, or anticoagulant use. Last EtOH was approximately 8 months ago. Fruit Bar Maker: Dr. Bedoya. ROS: Positive: As above Negative: Fever, chills, chest pains, palpitations, unusual back pain, abdominal pain, melena, hematochezia. - Related Data Home Medications Medication Instructions Recorded Confirmed Cyclobenzaprine HCl 10 mg PO TID PRN 11/13/17 11/30/17 Furosemide [Lasix] 40 mg PO DAILY 11/13/17 11/30/17 Gabapentin [Neurontin] 300 mg PO TID 11/13/17 11/30/17 Ledipasvir/Sofosbuvir [Harvoni 1 tab PO DAILY 11/13/17 11/30/17 90-400 mg Tablet] Oxycodone HCl 15 mg PO TID 11/13/17 11/30/17 Propranolol LA (24 HR) [Inderal LA] 60 mg PO DAILY 11/13/17 11/30/17 Spironolactone [Aldactone] 100 mg PO DAILY 11/13/17 11/30/17 Previous Rx's Medication Instructions Recorded Tramadol HCl [Ultram] 25 mg PO BID PRN 5 Days #10 tab 11/30/17 Allergies Allergy/AdvReac Type Severity Reaction Status Date / Time lactulose Allergy Hives Verified 01/11/18 08:20 All systems ED: reviewed and negative except as stated. Review of Systems: As Per HPI Past Medical History - Past Medical History Medical history: Reports: arthritis, cirrhosis, GERD, GI bleed, hepatitis, hyperlipidemia, hypertension, kidney stones, liver disease, RA, renal disease, seizures Surgical history: Reports: other Psychiatric history: Reports: anxiety - Social History Smoking Status: Current every day smoker Smokeless Tobacco Status: No Alcohol use: Reports: none Drug use: Reports: none Physical Exam - General Limitations: no limitations General appearance: alert, in no apparent distress Course Course Narrative: EKG dated 01/11/18 at 08:52 interpreted as sinus rhythm with rate of 81. MO 162 , QRS 14, QTC 440. Normal axis. Q waves present in inferolateral lead however nonspecific ST-T changes. Compared to previous EKG 08/23/17 showing no acute ischemic changes in comparison. Patient is hemodynamically stable. Lab work shows mild anemia with hemoglobin in the 11's. He is from thrombo-cytopenic with platelets of 72. I discussed the patient with on-call endoscopy, Dr. Payne, who has come down to the ER to see and evaluate the patient. His taken the patient to endoscopy now and requests admission to the ICU. I also called the blood bank in order to units on hold for the patient. Vital Signs Temperature 98.0 F 01/11/18 08:22 Pulse Rate 79 01/11/18 08:22 Respiratory Rate 16 01/11/18 08:22 Blood Pressure 110/78 01/11/18 08:22 O2 Sat by Pulse Oximetry 100 01/11/18 08:22 Temperature 98.0 F 01/11/18 08:22 Pulse Rate 72 01/11/18 09:30 Respiratory Rate 16 01/11/18 09:30 Blood Pressure 118/75 01/11/18 09:30 O2 Sat by Pulse Oximetry 100 01/11/18 09:30 Oxygen Delivery Oxygen Delivery Room Air GI Bleed - Lab Data Result diagrams: 01/11/18 08:34 01/11/18 08:34 Lab Results 01/11/18 01/11/18 01/11/18 Range/Units 08:34 08:34 08:34 WBC 6.0 (4.3-11.1) K/mcL RBC 4.24 (4.19-5.50) M/mcL Hgb 11.9 L (12.9-16.9) g/dL Hct 34.9 L (37.5-50.1) % MCV 82.3 L (83.0-100.0) fL MCH 28.1 (28.0-33.3) pg MCHC 34.1 (31.6-35.5) g/dL RDW 21.4 H (11.5-14.5) % Plt Count 72 L (140-400) K/mcL MPV 10.1 (9.4-12.4) fL Immature Gran % 0.3 (0-4) % Seg Neutrophils % 60.6 % Lymphocytes % 24.8 % Monocytes % 9.8 % Eosinophils % 3.8 % Basophils % 0.7 % Neutrophils # 3.6 (1.6-8.9) K/mcL Lymphocytes # 1.5 (0.6-4.6) K/mcL Monocytes # 0.6 (0.0-1.3) K/mcL Eosinophils # 0.2 (0.0-0.6) K/mcL Basophils # 0.0 (0.0-0.2) K/mcL Platelet Estimate Decreased L (Normal) Immature Plt Fraction 4.8 (1.1-6.1) % Anisocytosis 1+ A (Not Present) PT 14.3 H (9.4-12.1) Seconds INR 1.3 APTT 38.8 H (26.0-36.0) Seconds Sodium 137 (136-145) mEq/L Potassium 4.1 (3.5-5.1) mEq/L Chloride 108 H (98-107) mEq/L Carbon Dioxide 23 (23-29) mEq/L BUN 32 H (6-20) mg/dL Creatinine 0.72 (0.70-1.30) mg/dL Est GFR ( Amer) > 60 (> 60) Est GFR (Non-Af Amer) > 60 (> 60) BUN/Creatinine Ratio 44 H (6-26) Glucose 98 (70-105) mg/dL Calculated Osmolality 291 (280-300) Calcium 9.1 (8.6-10.3) mg/dL Blood Type Antibody Screen Crossmatch 01/11/18 Range/Units 08:34 WBC (4.3-11.1) K/mcL RBC (4.19-5.50) M/mcL Hgb (12.9-16.9) g/dL Hct (37.5-50.1) % MCV (83.0-100.0) fL MCH (28.0-33.3) pg MCHC (31.6-35.5) g/dL RDW (11.5-14.5) % Plt Count (140-400) K/mcL MPV (9.4-12.4) fL Immature Gran % (0-4) % Seg Neutrophils % % Lymphocytes % % Monocytes % % Eosinophils % % Basophils % % Neutrophils # (1.6-8.9) K/mcL Lymphocytes # (0.6-4.6) K/mcL Monocytes # (0.0-1.3) K/mcL Eosinophils # (0.0-0.6) K/mcL Basophils # (0.0-0.2) K/mcL Platelet Estimate (Normal) Immature Plt Fraction (1.1-6.1) % Anisocytosis (Not Present) PT (9.4-12.1) Seconds INR APTT (26.0-36.0) Seconds Sodium (136-145) mEq/L Potassium (3.5-5.1) mEq/L Chloride (98-107) mEq/L Carbon Dioxide (23-29) mEq/L BUN (6-20) mg/dL Creatinine (0.70-1.30) mg/dL Est GFR ( Amer) (> 60) Est GFR (Non-Af Amer) (> 60) BUN/Creatinine Ratio (6-26) Glucose (70-105) mg/dL Calculated Osmolality (280-300) Calcium (8.6-10.3) mg/dL Blood Type O POSITIVE Antibody Screen NEGATIVE Crossmatch See Detail
[2018-01-11 08:50] LABS: Eosinophils % 3.8 %; Hemoglobin 11.9 g/dL (12.9-16.9)
[2018-01-11 08:52] LABS: Basophils % 0.7 %; Eosinophils # 0.2 K/mcL (0.0-0.6); Hematocrit 34.9 % (37.5-50.1); Immature Granulocytes % 0.3 % (0-4); Immature Platelets 4.8 % (1.1-6.1); Lymphocytes # 1.5 K/mcL (0.6-4.6); Lymphocytes % 24.8 %; Mean Corpuscular HGB Conc 34.1 g/dL (31.6-35.5); Mean Corpuscular Hemoglobin 28.1 pg (28.0-33.3); Mean Corpuscular Volume 82.3 fL (83.0-100.0); Mean Platelet Volume 10.1 fL (9.4-12.4); Monocytes # 0.6 K/mcL (0.0-1.3); Monocytes % 9.8 %; Neutrophils # 3.6 K/mcL (1.6-8.9); Red Blood Count 4.24 M/mcL (4.19-5.50); Red Cell Distribution Width 21.4 % (11.5-14.5); Segmented Neutrophils % 60.6 %
--- NOTE | 2018-01-11 08:56 | Emergency Department Note ---
Disposition Clinical Impression: Upper GI bleed, Thrombocytopenia Anemia Qualifiers: Anemia type: unspecified type Qualified Code(s): D64.9 - Anemia, unspecified Disposition: Admitted As Inpatient Condition: Fair Time of Disposition: 11:13 General Adult HPI - General Chief complaint: ED GI Bleed Stated complaint: GI Bleed Time Seen by Provider: 01/11/18 08:23 Source: patient Limitations: no limitations - History of Present Illness Pain Scale: 3 - Related Data Home Medications Medication Instructions Recorded Confirmed Cyclobenzaprine HCl 10 mg PO TID PRN 11/13/17 11/30/17 Furosemide [Lasix] 40 mg PO DAILY 11/13/17 11/30/17 Gabapentin [Neurontin] 300 mg PO TID 11/13/17 11/30/17 Ledipasvir/Sofosbuvir [Harvoni 1 tab PO DAILY 11/13/17 11/30/17 90-400 mg Tablet] Oxycodone HCl 15 mg PO TID 11/13/17 11/30/17 Propranolol LA (24 HR) [Inderal LA] 60 mg PO DAILY 11/13/17 11/30/17 Spironolactone [Aldactone] 100 mg PO DAILY 11/13/17 11/30/17 Previous Rx's Medication Instructions Recorded Tramadol HCl [Ultram] 25 mg PO BID PRN 5 Days #10 tab 11/30/17 Allergies Allergy/AdvReac Type Severity Reaction Status Date / Time lactulose Allergy Hives Verified 01/11/18 08:20 Past Medical History - Past Medical History Medical history: Reports: arthritis, cirrhosis, GERD, GI bleed, hepatitis, hyperlipidemia, hypertension, kidney stones, liver disease, RA, renal disease, seizures Surgical history: Reports: other Psychiatric history: Reports: anxiety - Social History Smoking Status: Current every day smoker Smokeless Tobacco Status: No Alcohol use: Reports: none Drug use: Reports: none Physical Exam - General Limitations: no limitations General appearance: alert, in no apparent distress Course Vital Signs Temperature 98.0 F 01/11/18 08:22 Pulse Rate 79 01/11/18 08:22 Respiratory Rate 16 01/11/18 08:22 Blood Pressure 110/78 01/11/18 08:22 O2 Sat by Pulse Oximetry 100 01/11/18 08:22 Temperature 98.0 F 01/11/18 08:22 Pulse Rate 79 01/11/18 10:08 Respiratory Rate 16 01/11/18 10:08 Blood Pressure 122/73 01/11/18 10:08 O2 Sat by Pulse Oximetry 99 01/11/18 10:08 Oxygen Delivery Oxygen Delivery Room Air Medical Decision Making - Lab Data Result diagrams: 01/11/18 08:34 01/11/18 08:34 Lab Results 01/11/18 01/11/18 01/11/18 Range/Units 08:34 08:34 08:34 WBC 6.0 (4.3-11.1) K/mcL RBC 4.24 (4.19-5.50) M/mcL Hgb 11.9 L (12.9-16.9) g/dL Hct 34.9 L (37.5-50.1) % MCV 82.3 L (83.0-100.0) fL MCH 28.1 (28.0-33.3) pg MCHC 34.1 (31.6-35.5) g/dL RDW 21.4 H (11.5-14.5) % Plt Count 72 L (140-400) K/mcL MPV 10.1 (9.4-12.4) fL Immature Gran % 0.3 (0-4) % Seg Neutrophils % 60.6 % Lymphocytes % 24.8 % Monocytes % 9.8 % Eosinophils % 3.8 % Basophils % 0.7 % Neutrophils # 3.6 (1.6-8.9) K/mcL Lymphocytes # 1.5 (0.6-4.6) K/mcL Monocytes # 0.6 (0.0-1.3) K/mcL Eosinophils # 0.2 (0.0-0.6) K/mcL Basophils # 0.0 (0.0-0.2) K/mcL Platelet Estimate Decreased L (Normal) Immature Plt Fraction 4.8 (1.1-6.1) % Anisocytosis 1+ A (Not Present) PT 14.3 H (9.4-12.1) Seconds INR 1.3 APTT 38.8 H (26.0-36.0) Seconds Sodium 137 (136-145) mEq/L Potassium 4.1 (3.5-5.1) mEq/L Chloride 108 H (98-107) mEq/L Carbon Dioxide 23 (23-29) mEq/L BUN 32 H (6-20) mg/dL Creatinine 0.72 (0.70-1.30) mg/dL Est GFR ( Amer) > 60 (> 60) Est GFR (Non-Af Amer) > 60 (> 60) BUN/Creatinine Ratio 44 H (6-26) Glucose 98 (70-105) mg/dL Calculated Osmolality 291 (280-300) Calcium 9.1 (8.6-10.3) mg/dL Blood Type Antibody Screen Crossmatch 01/11/18 Range/Units 08:34 WBC (4.3-11.1) K/mcL RBC (4.19-5.50) M/mcL Hgb (12.9-16.9) g/dL Hct (37.5-50.1) % MCV (83.0-100.0) fL MCH (28.0-33.3) pg MCHC (31.6-35.5) g/dL RDW (11.5-14.5) % Plt Count (140-400) K/mcL MPV (9.4-12.4) fL Immature Gran % (0-4) % Seg Neutrophils % % Lymphocytes % % Monocytes % % Eosinophils % % Basophils % % Neutrophils # (1.6-8.9) K/mcL Lymphocytes # (0.6-4.6) K/mcL Monocytes # (0.0-1.3) K/mcL Eosinophils # (0.0-0.6) K/mcL Basophils # (0.0-0.2) K/mcL Platelet Estimate (Normal) Immature Plt Fraction (1.1-6.1) % Anisocytosis (Not Present) PT (9.4-12.1) Seconds INR APTT (26.0-36.0) Seconds Sodium (136-145) mEq/L Potassium (3.5-5.1) mEq/L Chloride (98-107) mEq/L Carbon Dioxide (23-29) mEq/L BUN (6-20) mg/dL Creatinine (0.70-1.30) mg/dL Est GFR ( Amer) (> 60) Est GFR (Non-Af Amer) (> 60) BUN/Creatinine Ratio (6-26) Glucose (70-105) mg/dL Calculated Osmolality (280-300) Calcium (8.6-10.3) mg/dL Blood Type O POSITIVE Antibody Screen NEGATIVE Crossmatch See Detail Attestation Statement - Attestation Attestation: I examined this patient and my medical decision-making was reviewed with the [employer]/PA/Advanced Practice Nurse/Resident Physician. I agree with the documented findings, disposition and treatment plan as described except to the extent set forth below. I did speak the patient spoke with him and examine him, does have some mild generalized abdominal pain but the main complaint is that he is vomiting bright red blood. History of cirrhosis and esophageal varices. States no alcohol consumption in the last several months. Otherwise well in appearance. Labs are pending, IV Protonix and octreotide. I did review the EKG showing normal sinus rhythm with a rate of 81 without acute ischemic change 0855
[2018-01-11 08:57] LABS: INR 1.3; Prothrombin Time 14.3 Seconds (9.4-12.1)
[2018-01-11 09:00] LABS: Activated Partial Thrombo Time 38.8 Seconds (26.0-36.0)
[2018-01-11] MEDS ORDERED: *HR* Propofol 200 MG/20 ML VIAL IVP ONE ×2 (09:02→09:43)
[2018-01-11 09:09] LABS: BUN/Creatinine Ratio 44 (6-26); Blood Urea Nitrogen 32 mg/dL (6-20); Calcium 9.1 mg/dL (8.6-10.3); Carbon Dioxide 23 mEq/L (23-29); Chloride 108 mEq/L (98-107); Glucose 98 mg/dL (70-105); Osmolality,Calculated 291 (280-300); Potassium 4.1 mEq/L (3.5-5.1); Sodium 137 mEq/L (136-145); eGFR For African Americans > 60 (> 60); eGFR For Non-African Americans > 60 (> 60)
[2018-01-11 09:29] LABS: Platelet Count 72 K/mcL (140-400)
[2018-01-11] MEDS ORDERED: Ondansetron 4 MG/2 ML VIAL ONE ×2 (09:31→11:09)
[2018-01-11 09:45] LABS: Anisocytosis 1+ (Not Present); Platelet Estimate Decreased (Normal)
--- NOTE | 2018-01-11 10:09 | Anesthesia Evaluation PreOp ---
Date of Encounter: 01/11/18 Time of Encounter: 10:07 - Past History Planned Operation: EGD Cardiac History: HTN, Hyperlipidemia Pulmonary History: Smoker (40 years), Asthma, COPD, [employer] History: Seizures (one episode in 2017 associated with head injury, not being medically treated) Other Medical History: Hepatic (cirrhosis, hepatitis C,), GERD, Other (H/O esophageal varices S/P Harvoni) Anesthesia History: No Prior Anesthetic Complications, Past Anesthesia Alcohol Use: none (quit heavy use 8 months ago) Drug use: none Medications and Allergies Cyclobenzaprine HCl 10 mg PO TID PRN 11/13/17 [History] Furosemide [Lasix] 40 mg PO DAILY 11/13/17 [History] Gabapentin [Neurontin] 300 mg PO TID 11/13/17 [History] Ledipasvir/Sofosbuvir [Harvoni 90-400 mg Tablet] 1 tab PO DAILY 11/13/17 [ History] Oxycodone HCl 15 mg PO TID 11/13/17 [History] Propranolol LA (24 HR) [Inderal LA] 60 mg PO DAILY 11/13/17 [History] Spironolactone [Aldactone] 100 mg PO DAILY 11/13/17 [History] Tramadol HCl [Ultram] 25 mg PO BID PRN 5 Days #10 tab 11/30/17 [Rx] 3 Allergy/AdvReac Type Severity Reaction Status Date / Time lactulose Allergy Hives Verified 01/11/18 08:20 - Meds/Allergy Pre-op Review Medications Reviewed: Yes Allergies Reviewed: Yes Beta Blockers on Current Med List: Yes If Beta Blockers taken, Date/Time (Last Dose taken): 01/10/2018 at 1000 Anesthesia Results - Labs 01/11/18 08:34 01/11/18 08:34 - Imaging EKG: report reviewed (08/23/2017 SINUS RHYTHM) Anesthesia Exam Vital Signs/O2 Sat, Most Current Temp Pulse Resp BP Pulse Ox 98.0 F 72 16 118/75 100 01/11/18 08:22 01/11/18 09:30 01/11/18 09:30 01/11/18 09:30 01/11/18 09:30 Height: 5'3''/1.6m Weight: 143 lbs/64.864 kg NPO (# of Hours): 8 Pain Scale: 0 Pain Scale Used: Numeric (1 - 10) - HEENT Pupil (Motor): EOMI Mallampati: III Teeth: Poor dentition Denture Type: Upper: Complete Oral Opening: Greater than 3 - [employer] LOC: Oriented [employer] Motor: Normal RUE, Normal LUE, Normal RLE, Normal LLE, Normal Face [employer] Sensory: Normal: RUE, LUE, RLE, LLE, Face - Cardiac Rhythm: Regular Murmur: None - Pulmonary Breath Sounds: bilateral Clear Respiratory Effort: Symmetrical Anesthesia Assess/Plan ASA Score: 4 Modified Charles Scale for Level of Consciousness: Cooperative, oriented, and tranquil Anesthetic Plan: MAC Monitoring Plan: Standard Monitors Recovery Plan: ICU
[2018-01-11] MEDS ORDERED: Octreotide 50 MCG/ML SYRINGE IVP ONE (11:14)
[2018-01-11] MEDS ORDERED: Pantoprazole 40 MG VIAL IVP ONE (11:14)
--- NOTE | 2018-01-11 11:18 | Pulmonology History & Physical ---
<Reggie Jimenez - Last Filed: 01/11/18 15:25> Date of Encounter: 01/11/18 Time of Encounter: 11:18 Assessment and Plan (1) GI bleed Current visit: No Status: Suspected - Due to esophageal varices bleeding, was banded by GI and endoscopy today, will monitor closely. Strict nothing by mouth Systems based plan: - Patient seen and examined. - Labs, radiology, chart personally reviewed. PATTERN GRADER CUTTER: Awake, alert and oriented Pulmonary: Acceptable ventilation and oxygenation, will continue to monitor Cardiovascular: Stable, will continue to monitor GI: Octreotide and protonix drip per GI. Will also place on Rocephin/Flagyl, STRICT NPO until GI sees tomorrow morning Heme: We will monitor H&H and replace as needed to keep hemoglobin above 7. Monitor platelets. Monitor coags. No chemo prophylaxis for DVT due to liver disease and bleeding, EPCDs ordered ID: Continue antibiotics and plan to de-escalation Renal: Monitor and trend Endorcine: Monitor blood glucose Lines: all lines checked and no evidence of infections Skin: skin care to prevent pressure ulcers per nursing routine care Overall prognosis is fair but long-term prognosis remains poor Qualifiers: GI bleed type/associated pathology: melena Qualified Code(s): K92.1 - Melena (2) DVT prophylaxis Current visit: No Status: Acute - No chemotherapy prophylaxis at this time due to bleeding History of Present Illness Chief complaint: Hematemesis HPI: Mr. Remy is a 57 year old male with history of alcoholic and hepatitis C, cirrhosis, presenting to the emergency Department today for hematemesis. Had a few episodes today prior to arrival. Had known varices. Patient went to endoscopy with Dr. Payne and had to varices banded. Presenting to the ICU for close monitoring after his procedure. According to the ER record, the patient had a few episodes of hematemesis that totaled about 32 ounces and was dark red. No significant abdominal pain, but did have nausea and obviously vomiting. Patient has no complaints currently other than nausea Past Med Surg Social Fam HX - Past Medical History Medical history: arthritis, cirrhosis, GERD, GI bleed, hepatitis, hyperlipidemia , hypertension, kidney stones, liver disease, RA, renal disease, seizures Additional medical history: anemia, colon pylops, hepatitis c, djd-polyarthritis , hearing loss, pantcytopenia, esopageal varices Psychiatric history: anxiety - Past Surgical History Surgical History: other Additional surgical history: colonoscopies-multiple unsure, [id number] - Social History Smoking Status: Current every day smoker Smokeless Tobacco Status: No Alcohol use: none Drug use: none - Family History Mother Grandmother Hx Family Cancer: Yes Medications and Allergies Cholecalciferol (Vitamin D3) [Vitamin D] 1,000 unit PO DAILY 01/11/18 [History] Ferrous Sulfate [Ferrous Sulfate] 325 mg PO DAILY 01/11/18 [History] Furosemide [Lasix] 40 mg PO DAILY 01/11/18 [History] Gabapentin [Neurontin] 300 mg PO Q8H 01/11/18 [History] Oxycodone HCl [Oxycodone HCl] 15 mg PO TID PRN 01/11/18 [History] Propranolol LA (24 HR) [Inderal LA] 60 mg PO DAILY 01/11/18 [History] Spironolactone [Aldactone] 50 mg PO DAILY 01/11/18 [History] 3 Allergy/AdvReac Type Severity Reaction Status Date / Time lactulose Allergy Hives Verified 01/11/18 08:20 All Systems: The remainder of the systems were reviewed and are negative Review of Systems: As reviewed in the HPI. All other systems reviewed are negative or normal. Physical Examination General appearance: other (Waking up from sedation, slightly sleepy) Eyes: nonicteric ENT: oropharynx dry Neck: supple Effort: normal Inspection: normal Auscultation: bilateral: diminished breath sounds Cardiovascular: regular rate and rhythm Gastrointestinal: absent bowel sounds, tender, other (Mildly distended) Integumentary: normal Extremities: no cyanosis, no edema Musculoskeletal: no deformities, ROM normal Results - Laboratory Findings CBC and BMP: 01/11/18 14:47 01/11/18 08:34 PT/INR, D-dimer PT 14.3 Seconds (9.4-12.1) H 01/11/18 08:34 Abnormal lab findings: Abnormal lab results Hgb 11.9 g/dL (12.9-16.9) L 01/11/18 08:34 Hct 34.9 % (37.5-50.1) L 01/11/18 08:34 MCV 82.3 fL (83.0-100.0) L 01/11/18 08:34 RDW 21.4 % (11.5-14.5) H 01/11/18 08:34 Plt Count 72 K/mcL (140-400) L 01/11/18 08:34 Platelet Estimate Decreased (Normal) L 01/11/18 08:34 Anisocytosis 1+ (Not Present) A 01/11/18 08:34 PT 14.3 Seconds (9.4-12.1) H 01/11/18 08:34 APTT 38.8 Seconds (26.0-36.0) H 01/11/18 08:34 Chloride 108 mEq/L (98-107) H 01/11/18 08:34 BUN 32 mg/dL (6-20) H 01/11/18 08:34 BUN/Creatinine Ratio 44 (6-26) H 01/11/18 08:34 <Yuliya Peck S - Last Filed: 01/11/18 21:54> Date of Encounter: 01/11/18 History of Present Illness HPI: Mr. Remy is a 57 year old male All Systems: The remainder of the systems were reviewed and are negative Physical Examination Vital Signs: Vital Signs, Last 4 Hours Temp Pulse Resp BP Pulse Ox 01/11/18 21:00 67 13 130/85 94 01/11/18 20:00 64 16 121/82 96 01/11/18 19:35 72 01/11/18 19:00 97.9 F 65 15 125/80 95 01/11/18 18:00 15 113/84 98 Results - Laboratory Findings CBC and BMP: 01/11/18 17:41 01/11/18 08:34 PT/INR, D-dimer PT 14.3 Seconds (9.4-12.1) H 01/11/18 08:34 Abnormal lab findings: Abnormal lab results Hgb 10.9 g/dL (12.9-16.9) L 01/11/18 17:41 Hct 31.4 % (37.5-50.1) L 01/11/18 17:41 MCV 82.3 fL (83.0-100.0) L 01/11/18 08:34 RDW 21.4 % (11.5-14.5) H 01/11/18 08:34 Plt Count 72 K/mcL (140-400) L 01/11/18 08:34 Platelet Estimate Decreased (Normal) L 01/11/18 08:34 Anisocytosis 1+ (Not Present) A 01/11/18 08:34 PT 14.3 Seconds (9.4-12.1) H 01/11/18 08:34 APTT 38.8 Seconds (26.0-36.0) H 01/11/18 08:34 Chloride 108 mEq/L (98-107) H 01/11/18 08:34 BUN 32 mg/dL (6-20) H 01/11/18 08:34 BUN/Creatinine Ratio 44 (6-26) H 01/11/18 08:34 - Attending Attestation I saw and evaluated this patient and my medical decision-making was reviewed with the Resident Physician. I agree with the documented findings, disposition and treatment plan as described except to the extent set forth below. We independently had [id number] contact with the patient Patient seen and examined at bedside Labs, radiology, chart personally reviewed. Management was reviewed during multidisciplinary critical care rounds. PATTERN GRADER CUTTER: Patient is conscious oriented x 3 has high risk of encephalopathy will start on Rifaximin . Pulm:Patient has acceptable oxygenation and Ventilation Cards: Patient hemodynamically stable now , no signs of significant bleeding FEN-GI: Patient has alcoholic cirrhosis with poral hypertesnion has significant esophageal varices it was banded . Will start on PPI and Somatostatin . prophylaxis to prevent SBP with third generation cephalosporin Renal:Labd reviewed ID:. To cover for prophylaxis of SBP Heme/Onc:Labs reviewed Endo: Glucose Monitored Integ/MSK: Skin Care per routine ICU Nursing Protocol to prevent ulcers. Lines: All lines examined without evidence of infection : Dispo: Critically ill CODE: Full Code
--- NOTE | 2018-01-11 11:56 | Gastroenterology Consult Note ---
Date of Encounter: 01/11/18 Time of Encounter: 10:30 - Assessment and plan (1) GI bleed Current Visit: No Status: Suspected Assessment and plan: Pt will be taken for urgent EGD with likely esophageal banding this morning per Dr Payne. Qualifiers: GI bleed type/associated pathology: melena Qualified Code(s): K92.1 - Melena (2) Hepatitis C, chronic Current Visit: No Status: Chronic Qualifiers: Hepatic coma status: without hepatic coma Qualified Code(s): B18.2 - Chronic viral hepatitis C (3) Advanced cirrhosis of liver Current Visit: No Status: Chronic Assessment and plan: Pt has some ascites, may need paracentesis. He states he hasn't been taking his diuretics at home because "he can't stay in the bathroom all the time". He is advised he needs to take them daily. Prognosis is likely poor as he is noncompliant with treatment. - Time Spent With Patient Total time spent is greater than 50% in coordination of care (as documented) at patient's floor/unit and/or counseling patient: GI History of Present Illness - Data of Consult Patient: known to practice within the last 3 years Consult date: 01/11/18 Requesting Physician: Yuliya Peck MD - Consult Narrative Reason for consult: esophageal varices History of present illness: Mr. Remy is a 57 year old male with a significant PMH of cirrhotic liver, esophageal varices with numerous banding and upper GI bleeding, EtOH abuse, Hepatitis C, and colon polyps. ast year. He presented to the ER with complains of hemetemesis. According to the pt he had 3 episodes of vomiting large amounts of maroon blood this morning. He denies chest pain, syncope, diarrhea or melena. He denies any rectnt alcohol use. He reports swelling in his abdomen. He states he had a paracentesis approximately 1.5 months ago. Meld Na- 12 DF- 11 Child-pradhan class B Colonoscopy: 08/24/17 2 avms one large in the ascending colon, nonbleeding internal hemorhoids and large non-bleeding rectal varices, EGD: 11/30 scarring in the lower esophagus, small varices unbandable 08/23/1718 grade I varices, multiple scars from banding, gastritis, moderate portay hypertensive gastropathy, NSAIDS/ASA: denies Anticoagulants: denies Past Med Surg Social Fam HX - Past Medical History Medical history: arthritis, cirrhosis, GERD, GI bleed, hepatitis, hyperlipidemia , hypertension, kidney stones, liver disease, RA, renal disease, seizures Additional medical history: anemia, colon pylops, hepatitis c, djd-polyarthritis , hearing loss, pantcytopenia, esopageal varices Psychiatric history: anxiety - Past Surgical History Surgical History: other Additional surgical history: colonoscopies-multiple unsure, [id number] - Social History Smoking Status: Current every day smoker Smokeless Tobacco Status: No Alcohol use: none Drug use: none - Family History Mother Grandmother Hx Family Cancer: Yes Review of Systems: GI: as per [place] [facility]: denies fever or chills EYES: denies yellow discoloration ENT: denies pain with swallowing or difficulty swallowing CARDIO: denies chest pain, palpitations RESP: Shortness of breath with exertion : denies change in color of urine NEURO: weakness HEME: Denies any bruising MS: denies joint pain, joint swelling or back pain. DERM: denies rash or itching PSYCH: Denies history of anxiety or depression - Constitutional Vitals: Temp Pulse Resp BP Pulse Ox 97.6 F 79 16 122/73 99 01/11/18 11:34 01/11/18 10:08 01/11/18 10:08 01/11/18 10:08 01/11/18 10:08 Exam: CONSTITUTIONAL:~alert, no acute distress.~HEAD:~normocephalic.~EYES:~no jaundice.~NECK:~no obvious swelling.~HEART:~regular rate and rhythm, no murmurs. ~LUNGS:~bilateral good air entry.~ABDOMEN:~distended, soft, non tender, no masses palpable, ascites noted.~RECTAL EXAM:~Deferred.~EXTREMITIES:~no clubbing , cyanosis, trace BLE edema.~SKIN:~no stigmata of chronic liver disease.~ NEUROLOGIC:~no obvious focal defect.~~~~ Results - Labs CBC & Chem 7: 01/11/18 08:34 01/11/18 08:34 Labs: Last Result Calcium 9.1 mg/dL (8.6-10.3) 01/11/18 08:34 Entire Visit Hgb 11.9 g/dL (12.9-16.9) L 01/11/18 08:34 Hct 34.9 % (37.5-50.1) L 01/11/18 08:34 PT 14.3 Seconds (9.4-12.1) H 01/11/18 08:34 - ABG ABG results: PT/INR, D-dimer PT 14.3 Seconds (9.4-12.1) H 01/11/18 08:34 Consult Discharge Plan - Plan Referrals: Seymour West MD [Primary Care Provider] -
[2018-01-11 11:58] LABS: Hematocrit 33.1 % (37.5-50.1)
[2018-01-11] MEDS ORDERED: *HR* OxyCODONE Oral Soln 5 MG/5 ML UD.LIQ PO STA (13:17)
[2018-01-11] MEDS: Octreotide 400 MCG in 0.9 % Sodium Chloride 100 ML IVC SCH ×2 (13:20→21:23)
[2018-01-11] MEDS: Pantoprazole 40 MG in 0.9 % Sodium Chloride Mini Bag 100 ML IVC SCH ×3 (13:36→22:17)
[2018-01-11] MEDS: MetroNIDAZOLE 500 MG/100 ML 500 MG/100 ML BAG IVPB SCH ×2 (13:37→17:52)
[2018-01-11 15:14] LABS: Hematocrit 32.9 % (37.5-50.1); Hemoglobin 11.1 g/dL (12.9-16.9)
[2018-01-11] MEDS ORDERED: *HR* OxyCODONE Oral Soln 5 MG/5 ML UD.LIQ PO PRN (17:36)
[2018-01-11 17:48] LABS: Hematocrit 31.4 % (37.5-50.1); Hemoglobin 10.9 g/dL (12.9-16.9)
[2018-01-12] MEDS: MetroNIDAZOLE 500 MG/100 ML 500 MG/100 ML BAG IVPB SCH (00:19)
[2018-01-12 00:32] LABS: INR 1.2; Prothrombin Time 13.4 Seconds (9.4-12.1)
[2018-01-12 00:34] LABS: Activated Partial Thrombo Time 38.8 Seconds (26.0-36.0)
[2018-01-12 00:43] LABS: BUN/Creatinine Ratio 28 (6-26); Blood Urea Nitrogen 22 mg/dL (6-20); Calcium 8.5 mg/dL (8.6-10.3); Carbon Dioxide 19 mEq/L (23-29); Chloride 109 mEq/L (98-107); Glucose 86 mg/dL (70-105); Osmolality,Calculated 285 (280-300); Potassium 3.6 mEq/L (3.5-5.1); Sodium 136 mEq/L (136-145); eGFR For African Americans > 60 (> 60); eGFR For Non-African Americans > 60 (> 60)
[2018-01-12 00:44] LABS: Basophils % 0.3 %; Eosinophils # 0.1 K/mcL (0.0-0.6); Eosinophils % 1.9 %; Hematocrit 32.4 % (37.5-50.1); Immature Granulocytes % 0.1 % (0-4); Lymphocytes % 15.3 %; Mean Corpuscular Volume 82.4 fL (83.0-100.0); Monocytes # 0.5 K/mcL (0.0-1.3); Neutrophils # 5.1 K/mcL (1.6-8.9); Red Blood Count 3.93 M/mcL (4.19-5.50); Red Cell Distribution Width 21.2 % (11.5-14.5); Segmented Neutrophils % 75.4 %
[2018-01-12 00:52] LABS: Platelet Count 61 K/mcL (140-400)
[2018-01-12] MEDS: Pantoprazole 40 MG in 0.9 % Sodium Chloride Mini Bag 100 ML IVC SCH (03:17)
[2018-01-12] MEDS: Octreotide 400 MCG in 0.9 % Sodium Chloride 100 ML IVC SCH (05:23)
--- NOTE | 2018-01-12 07:41 | Pulmonology Progress Note ---
<Reggie Jimenez - Last Filed: 01/12/18 10:34> Date of Encounter: 01/12/18 Time of Encounter: 07:41 Assessment and Plan (1) GI bleed Status: Suspected - Due to esophageal varices bleeding, was banded by GI and endoscopy yesterday and has done incredibly well. Should trasnfer to floor today with discharge soon. Remains strict nothing by mouth until GI evaluates. Systems based plan: - Patient seen and examined. - Labs, radiology, chart personally reviewed. DRAPERY HAND: Awake, alert and oriented Pulmonary: Acceptable ventilation and oxygenation, will continue to monitor Cardiovascular: Stable, will continue to monitor GI: Octreotide and protonix drip per GI. Continue Rocephin/Flagyl, STRICT NPO until GI sees this morning. Heme: Coags and hemoglobin stable and slightly improved ID: Continue antibiotics and plan to de-escalation Renal: Monitor and trend Endorcine: Monitor blood glucose Lines: all lines checked and no evidence of infections Skin: skin care to prevent pressure ulcers per nursing routine care Overall prognosis is fair but long-term prognosis remains poor Qualifiers: GI bleed type/associated pathology: gastrointestinal hemorrhage with hematemesis Qualified Code(s): K92.0 - Hematemesis (2) DVT prophylaxis Status: Acute - No chemical prophylaxis at this time due to bleeding Subjective Principal diagnosis: Variceal bleed Interval history: Did incredibly well overnight. Wanted to sign out AGAINST MEDICAL ADVICE but was instructed to wait until GI saw him. Patient has no complaints at this time Objective PUL Vital signs: Last Vital Signs Temp 98.3 F 01/12/18 04:32 Pulse 74 01/12/18 06:00 Resp 15 01/12/18 06:00 BP 135/89 01/12/18 06:00 Pulse Ox 95 01/12/18 06:00 General appearance: no acute distress, other (Sitting up on the edge of bed) Eyes: nonicteric ENT: oropharynx moist Neck: supple Effort: normal Auscultation: bilateral: clear Cardiovascular: regular rate and rhythm Gastrointestinal: normoactive bowel sounds, soft, other (Mildly distended) Integumentary: normal Extremities: no cyanosis, no edema, no clubbing Musculoskeletal: no deformities, ROM normal normal mental status, non-focal exam Results - Laboratory Findings CBC and BMP: 01/12/18 00:10 01/12/18 00:10 PT/INR, D-dimer PT 13.4 Seconds (9.4-12.1) H 01/12/18 00:10 Abnormal lab findings: Abnormal lab results RBC 3.93 M/mcL (4.19-5.50) L 01/12/18 00:10 Hgb 11.0 g/dL (12.9-16.9) L 01/12/18 00:10 Hct 32.4 % (37.5-50.1) L 01/12/18 00:10 MCV 82.4 fL (83.0-100.0) L 01/12/18 00:10 RDW 21.2 % (11.5-14.5) H 01/12/18 00:10 Plt Count 61 K/mcL (140-400) L 01/12/18 00:10 Platelet Estimate Decreased (Normal) L 01/11/18 08:34 Anisocytosis 1+ (Not Present) A 01/11/18 08:34 PT 13.4 Seconds (9.4-12.1) H 01/12/18 00:10 APTT 38.8 Seconds (26.0-36.0) H 01/12/18 00:10 Chloride 109 mEq/L (98-107) H 01/12/18 00:10 Carbon Dioxide 19 mEq/L (23-29) L 01/12/18 00:10 BUN 22 mg/dL (6-20) H 01/12/18 00:10 BUN/Creatinine Ratio 28 (6-26) H 01/12/18 00:10 Calcium 8.5 mg/dL (8.6-10.3) L 01/12/18 00:10 - Clinical Findings Intake & Output: Intake & Output 01/11/18 01/11/18 01/12/18 15:59 23:59 07:59 Intake Total 220 / 1280 404 / 404 304 / 304 Output Total 600 / 600 500 / 500 600 / 600 Balance -380 / 680 -96 / -96 -296 / -296 Weight 63.8 kg 63.7 kg - VTE Documentation of Mechanical Device: Intermittent pneumatic compression device Consult Discharge Plan - Plan Instructions: Anemia (GEN) Additional Instructions: Follow-up with your primary care physician and your GI physician within the next 48 hours. Go to the emergency department immediately for any new or worsening abdominal pain or certainly for any hematemesis or bleeding from your stool Referrals: Seymour West MD [Primary Care Provider] - <Yuliya Peck - Last Filed: 01/12/18 23:56> Date of Encounter: 01/12/18 Objective PUL Vital signs: Last Vital Signs Temp 98.2 F 01/12/18 08:00 Pulse 82 01/12/18 08:00 Resp 15 01/12/18 06:00 BP 124/83 01/12/18 08:00 Pulse Ox 95 01/12/18 06:00 Results - Laboratory Findings CBC and BMP: 01/12/18 00:10 01/12/18 00:10 PT/INR, D-dimer PT 13.4 Seconds (9.4-12.1) H 01/12/18 00:10 Abnormal lab findings: Abnormal lab results RBC 3.93 M/mcL (4.19-5.50) L 01/12/18 00:10 Hgb 11.0 g/dL (12.9-16.9) L 01/12/18 00:10 Hct 32.4 % (37.5-50.1) L 01/12/18 00:10 MCV 82.4 fL (83.0-100.0) L 01/12/18 00:10 RDW 21.2 % (11.5-14.5) H 01/12/18 00:10 Plt Count 61 K/mcL (140-400) L 01/12/18 00:10 Platelet Estimate Decreased (Normal) L 01/11/18 08:34 Anisocytosis 1+ (Not Present) A 01/11/18 08:34 PT 13.4 Seconds (9.4-12.1) H 01/12/18 00:10 APTT 38.8 Seconds (26.0-36.0) H 01/12/18 00:10 Chloride 109 mEq/L (98-107) H 01/12/18 00:10 Carbon Dioxide 19 mEq/L (23-29) L 01/12/18 00:10 BUN 22 mg/dL (6-20) H 01/12/18 00:10 BUN/Creatinine Ratio 28 (6-26) H 01/12/18 00:10 Calcium 8.5 mg/dL (8.6-10.3) L 01/12/18 00:10 - Clinical Findings Intake & Output: Intake & Output 01/12/18 01/12/18 01/12/18 07:59 15:59 23:59 Intake Total 304 / 304 Output Total 600 / 600 175 / 175 Balance -296 / -296 -175 / -175 Weight 63.7 kg - Attending Attestation - Attending Attestation I saw and evaluated this patient and my medical decision-making was reviewed with the Resident Physician. I agree with the documented findings, disposition and treatment plan as described except to the extent set forth below. We independently had [id number] contact with the patient Patient seen and examined at bedside Labs, radiology, chart personally reviewed. Management was reviewed during multidisciplinary critical care rounds. DRAPERY HAND: Patient is conscious oriented x 3 has high risk of encephalopathy on rifaximin Pulm:Patient has acceptable oxygenation and Ventilation Cards: Patient hemodynamically stable now , no signs of significant bleeding FEN-GI: Patient has alcoholic cirrhosis with poral hypertesnion has significant esophageal varices it was banded . on PPI and Somatostatin . prophylaxis to prevent SBP with third generation cephalosporin Renal:Labd reviewed ID:. To cover for prophylaxis of SBP Heme/Onc:Labs reviewed Endo: Glucose Monitored Integ/MSK: Skin Care per routine ICU Nursing Protocol to prevent ulcers. Lines: All lines examined without evidence of infection : Dispo: Patient left AMA despite extensive counseling of bleeding risk and . CODE: Full Code
[2018-01-12 08:49] VITALS: BP 124/83
[2018-01-12] MEDS ORDERED: cefTRIAXone 1,000 MG in Water for inj. (sterile) 20 ML 10 ML IVP SCH (09:00)
--- NOTE | 2018-01-12 10:37 | Discharge Summary ---
<Reggie Jimenez - Last Filed: 01/12/18 10:35> - NOTES TO OUTPATIENT PROVIDER Notes to Outpatient Provider: Patient signed out AGAINST MEDICAL ADVICE less than 24 hours after having 2 esophageal varices banded. He is at high risk for rebleeding. Date of Encounter: 01/12/18 Time of Encounter: 09:00 - Discharge Diagnosis (1) GI bleed Priority: Primary Status: Resolved Comments: 1. Had to varices banded was supposed to be nothing by mouth, but patient signed out AGAINST MEDICAL ADVICE to go home. We discussed that he is at extremely high risk for rebleeding and that he could from this. Patient is awake, alert and in verbalizes understanding and still chooses to leave. His labs and vital signs are stable and he does have the mental capacity to make his own decisions. We spoke with GI and they were agreeable with him signing out AMA as well. We will encourage him to follow up with his primary care physician and GI physician within the next few days for recheck. He was specifically instructed to go to the ER for any abdominal pain or hematemesis or any other concerns. Qualifiers: GI bleed type/associated pathology: gastrointestinal hemorrhage with hematemesis Qualified Code(s): K92.0 - Hematemesis (2) DVT prophylaxis Priority: Secondary Status: Resolved Comments: 1. None, patient left AMA. Was withholding due to bleeding. - Discharge Medications Home Medications: Cholecalciferol (Vitamin D3) [Vitamin D] 1,000 unit PO DAILY 01/11/18 [History] Ferrous Sulfate [Ferrous Sulfate] 325 mg PO DAILY 01/11/18 [History] Furosemide [Lasix] 40 mg PO DAILY 01/11/18 [History] Gabapentin [Neurontin] 300 mg PO Q8H 01/11/18 [History] Oxycodone HCl [Oxycodone HCl] 15 mg PO TID PRN 01/11/18 [History] Propranolol LA (24 HR) [Inderal LA] 60 mg PO DAILY 01/11/18 [History] Spironolactone [Aldactone] 50 mg PO DAILY 01/11/18 [History] Allergies/Adverse Reactions: 3 Allergy/AdvReac Type Severity Reaction Status Date / Time lactulose Allergy Hives Verified 06/29/18 08:20 Procedures and tests throughout hospitalization: EGD with variceal banding Labs on day of discharge: Labs from last 24 hours 01/12/18 01/12/18 01/12/18 00:10 00:10 00:10 WBC 6.7 RBC 3.93 L Hgb 11.0 L Hct 32.4 L MCV 82.4 L MCH 28.0 MCHC 34.0 RDW 21.2 H Plt Count 61 L MPV TNP Immature Gran % 0.1 Seg Neutrophils % 75.4 Lymphocytes % 15.3 Monocytes % 7.0 Eosinophils % 1.9 Basophils % 0.3 Neutrophils # 5.1 Lymphocytes # 1.0 Monocytes # 0.5 Eosinophils # 0.1 Basophils # 0.0 Immature Plt Fraction 5.0 PT 13.4 H INR 1.2 APTT 38.8 H Sodium 136 Potassium 3.6 Chloride 109 H Carbon Dioxide 19 L BUN 22 H Creatinine 0.80 Est GFR ( Amer) > 60 Est GFR (Non-Af Amer) > 60 BUN/Creatinine Ratio 28 H Glucose 86 POC Glucose Calculated Osmolality 285 Calcium 8.5 L 01/11/18 01/11/18 01/11/18 17:41 14:47 11:35 WBC RBC Hgb 10.9 L 11.1 L 11.0 L Hct 31.4 L 32.9 L 33.1 L MCV MCH MCHC RDW Plt Count MPV Immature Gran % Seg Neutrophils % Lymphocytes % Monocytes % Eosinophils % Basophils % Neutrophils # Lymphocytes # Monocytes # Eosinophils # Basophils # Immature Plt Fraction PT INR APTT Sodium Potassium Chloride Carbon Dioxide BUN Creatinine Est GFR ( Amer) Est GFR (Non-Af Amer) BUN/Creatinine Ratio Glucose POC Glucose Calculated Osmolality Calcium 01/11/18 11:00 WBC RBC Hgb Hct MCV MCH MCHC RDW Plt Count MPV Immature Gran % Seg Neutrophils % Lymphocytes % Monocytes % Eosinophils % Basophils % Neutrophils # Lymphocytes # Monocytes # Eosinophils # Basophils # Immature Plt Fraction PT INR APTT Sodium Potassium Chloride Carbon Dioxide BUN Creatinine Est GFR ( Amer) Est GFR (Non-Af Amer) BUN/Creatinine Ratio Glucose POC Glucose 96 Calculated Osmolality Calcium - Impressions GI bleed due to esophageal varices Post hemorrhagic anemia Chronic hepatitis C and alcohol abuse Medical noncompliance Date of admission: 01/11/18 10:39 Primary care physician: Seymour West MD Consults: GI Discharging clinician: Yuliya Peck Anticipated date of discharge: 01/12/18 - Patient Status Disposition: Left Against Medical Advice Condition: Fair Functional capacity at discharge: independent ambulation Overall status at discharge: patient is back to baseline - Discharge Instructions Instructions: Anemia (GEN) Follow Up With: Seymour West MD [Primary Care Provider] - Additional Instructions: Follow-up with your primary care physician and your GI physician within the next 48 hours. Go to the emergency department immediately for any new or worsening abdominal pain or certainly for any hematemesis or bleeding from your stool - Diet and Activity Diet: other (Instructed that he should remain nothing by mouth until evaluated by GI. However, patient refused and left AGAINST MEDICAL ADVICE) - Hospital Course Hospital course: Mr. Remy is a 57 year old male who came into the ER yesterday for hematemesis. He was sent over to the endoscopy suite with GI and had 2 esophageal varices banded. He was sent to the ICU for close hemodynamic monitoring. He did not require any resuscitation or blood product administration. His labs and vital signs were stable. He left AGAINST MEDICAL ADVICE prior to GI seeing him again in the morning. We discussed that he was at high risk for rebleeding, but he is of good mental capacity and still chose to leave AGAINST MEDICAL ADVICE. - Time Spent with Patient Total time spent providing and/or coordinating discharge services: Physical Examination Vital Signs: Vital Signs, Last 4 Hours Temp Pulse BP 01/12/18 08:00 98.2 F 82 124/83 General appearance: no acute distress, alert Eyes: nonicteric ENT: oropharynx moist Neck: supple Effort: normal Inspection: normal Cardiovascular: regular rate and rhythm Gastrointestinal: normoactive bowel sounds, soft, other (mildly distended ) Integumentary: normal Extremities: no cyanosis, no edema, no clubbing Musculoskeletal: no deformities, ROM normal normal mental status, non-focal exam mood appropriate, affect normal - VTE Documentation of Mechanical Device: Intermittent pneumatic compression device <Yuliya Peck - Last Filed: 01/12/18 23:58> Date of Encounter: 01/12/18 Labs on day of discharge: Labs from last 24 hours 01/12/18 01/12/18 01/12/18 00:10 00:10 00:10 WBC 6.7 RBC 3.93 L Hgb 11.0 L Hct 32.4 L MCV 82.4 L MCH 28.0 MCHC 34.0 RDW 21.2 H Plt Count 61 L MPV TNP Immature Gran % 0.1 Seg Neutrophils % 75.4 Lymphocytes % 15.3 Monocytes % 7.0 Eosinophils % 1.9 Basophils % 0.3 Neutrophils # 5.1 Lymphocytes # 1.0 Monocytes # 0.5 Eosinophils # 0.1 Basophils # 0.0 Immature Plt Fraction 5.0 PT 13.4 H INR 1.2 APTT 38.8 H Sodium 136 Potassium 3.6 Chloride 109 H Carbon Dioxide 19 L BUN 22 H Creatinine 0.80 Est GFR ( Amer) > 60 Est GFR (Non-Af Amer) > 60 BUN/Creatinine Ratio 28 H Glucose 86 POC Glucose Calculated Osmolality 285 Calcium 8.5 L 01/11/18 11:00 WBC RBC Hgb Hct MCV MCH MCHC RDW Plt Count MPV Immature Gran % Seg Neutrophils % Lymphocytes % Monocytes % Eosinophils % Basophils % Neutrophils # Lymphocytes # Monocytes # Eosinophils # Basophils # Immature Plt Fraction PT INR APTT Sodium Potassium Chloride Carbon Dioxide BUN Creatinine Est GFR ( Amer) Est GFR (Non-Af Amer) BUN/Creatinine Ratio Glucose POC Glucose 96 Calculated Osmolality Calcium Date of admission: 01/11/18 10:39 Primary care physician: Seymour West MD - Hospital Course Hospital course: I agree with the above documentation. - Time Spent with Patient Total time spent providing and/or coordinating discharge services:
--- NOTE | 2018-01-14 06:49 | Electrocardiograph Report ---
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
== END 2018-01-12 08:15 | disposition left against medical advice (07) | DRG 369 ==
LOC: EMEROO 08:19 → ICNU 10:39
PROVIDERS: ADMIT Internal Medicine Pulmonary Disease; ATTEND Internal Medicine Pulmonary Disease